=== PATIENT | female | born 1935 | race Two or more races ===

== ENCOUNTER 2018-11-19 09:45 | Outpatient (CLI) | payer MEDICARE, OTHER | END 2018-11-19 23:59 | disposition home health service (06) | LOC: WOU 09:45 | PROVIDERS: ATTEND Podiatrist Foot & Ankle Surgery | DX: S81.811A Laceration without foreign body, right lower leg, initial encounter (principal); W22.09XA Striking against other stationary object, initial encounter; Y93.89 Activity, other specified; R26.2 Difficulty in walking, not elsewhere classified; G90.09 Other idiopathic peripheral autonomic neuropathy; E66.9 Obesity, unspecified; Z68.39 Body mass index [BMI] 39.0-39.9, adult; I10 Essential (primary) hypertension | CPT/HCPCS: 11042; 11045 ==

== ENCOUNTER 2018-11-26 08:30 | Outpatient (CLI) | payer MEDICARE, OTHER | END 2018-11-26 23:59 | disposition home health service (06) | LOC: WOU 08:30 | PROVIDERS: ATTEND Podiatrist Foot & Ankle Surgery | DX: S81.811A Laceration without foreign body, right lower leg, initial encounter (principal); W22.09XA Striking against other stationary object, initial encounter; Y93.89 Activity, other specified; Y92.89 Other specified places as the place of occurrence of the external cause; Y99.8 Other external cause status; G90.09 Other idiopathic peripheral autonomic neuropathy; E66.01 Morbid (severe) obesity due to excess calories; Z68.39 Body mass index [BMI] 39.0-39.9, adult; R26.2 Difficulty in walking, not elsewhere classified; I10 Essential (primary) hypertension | CPT/HCPCS: 11042 ==

== ENCOUNTER 2018-12-03 08:30 | Outpatient (CLI) | payer MEDICARE, OTHER | END 2018-12-03 23:59 | disposition home health service (06) | LOC: WOU 08:30 | PROVIDERS: ATTEND Podiatrist Foot & Ankle Surgery | DX: S81.811A Laceration without foreign body, right lower leg, initial encounter (principal); W22.09XA Striking against other stationary object, initial encounter; Y93.89 Activity, other specified; Y92.89 Other specified places as the place of occurrence of the external cause; Y99.8 Other external cause status; L03.115 Cellulitis of right lower limb; G90.09 Other idiopathic peripheral autonomic neuropathy; E66.9 Obesity, unspecified; Z68.39 Body mass index [BMI] 39.0-39.9, adult; R26.2 Difficulty in walking, not elsewhere classified; I10 Essential (primary) hypertension | CPT/HCPCS: 11042; 11045 ==

== ENCOUNTER 2018-12-10 08:45 | Outpatient (CLI) | payer MEDICARE, OTHER | END 2018-12-10 23:59 | disposition home health service (06) | LOC: WOU 08:45 | PROVIDERS: ATTEND Podiatrist Foot & Ankle Surgery | DX: S81.811A Laceration without foreign body, right lower leg, initial encounter (principal); W22.09XA Striking against other stationary object, initial encounter; Y93.89 Activity, other specified; Y92.89 Other specified places as the place of occurrence of the external cause; R26.2 Difficulty in walking, not elsewhere classified; G90.09 Other idiopathic peripheral autonomic neuropathy; E66.9 Obesity, unspecified; Z68.39 Body mass index [BMI] 39.0-39.9, adult; I10 Essential (primary) hypertension | CPT/HCPCS: 11042 ==

== ENCOUNTER 2018-12-17 08:43 | Outpatient (CLI) | payer MEDICARE, OTHER | END 2018-12-17 23:59 | disposition home health service (06) | LOC: WOU 08:43 | PROVIDERS: ATTEND Podiatrist Foot & Ankle Surgery | DX: S81.811A Laceration without foreign body, right lower leg, initial encounter (principal); W22.09XA Striking against other stationary object, initial encounter; Y92.89 Other specified places as the place of occurrence of the external cause; M79.604 Pain in right leg; R26.2 Difficulty in walking, not elsewhere classified; E66.9 Obesity, unspecified; Z68.39 Body mass index [BMI] 39.0-39.9, adult; G90.09 Other idiopathic peripheral autonomic neuropathy; I10 Essential (primary) hypertension | CPT/HCPCS: 11042 ==

== ENCOUNTER 2018-12-24 14:00 | Outpatient (CLI) | payer MEDICARE, OTHER | END 2018-12-24 23:59 | disposition home health service (06) | LOC: WOU 14:00 | PROVIDERS: ATTEND Podiatrist Foot & Ankle Surgery | DX: S81.811D Laceration without foreign body, right lower leg, subsequent encounter (principal); W22.09XD Striking against other stationary object, subsequent encounter; L03.115 Cellulitis of right lower limb; R26.2 Difficulty in walking, not elsewhere classified; G90.09 Other idiopathic peripheral autonomic neuropathy; E66.9 Obesity, unspecified; Z68.39 Body mass index [BMI] 39.0-39.9, adult; I10 Essential (primary) hypertension | CPT/HCPCS: G0463 ==

== ENCOUNTER 2019-01-04 08:30 | Outpatient (CLI) | payer MEDICARE, OTHER | END 2019-01-04 23:59 | disposition home health service (06) | LOC: WOU 08:30 | PROVIDERS: ATTEND Podiatrist Foot & Ankle Surgery | DX: S81.811A Laceration without foreign body, right lower leg, initial encounter (principal); L03.115 Cellulitis of right lower limb; W22.8XXA Striking against or struck by other objects, initial encounter; V48.4XXA Person boarding or alighting a car injured in noncollision transport accident, initial encounter; G90.09 Other idiopathic peripheral autonomic neuropathy; I10 Essential (primary) hypertension; E66.9 Obesity, unspecified; Z68.39 Body mass index [BMI] 39.0-39.9, adult; Z71.3 Dietary counseling and surveillance | CPT/HCPCS: 11042 ==

== ENCOUNTER → 2019-01-08 | Outpatient (CLI) | payer MEDICARE, OTHER | END | disposition home health service (06) | LOC: WOU 08:35 | PROVIDERS: ATTEND Podiatrist Foot & Ankle Surgery | DX: I87.2 Venous insufficiency (chronic) (peripheral) (principal); L97.822 Non-pressure chronic ulcer of other part of left lower leg with fat layer exposed; R60.0 Localized edema; Z79.899 Other long term (current) drug therapy | CPT/HCPCS: 11042 ==

== ENCOUNTER 2019-01-15 09:22 | Outpatient (CLI) | payer MEDICARE, OTHER | END 2019-01-15 23:59 | disposition home health service (06) | LOC: WOU 09:22 | PROVIDERS: ATTEND Podiatrist Foot & Ankle Surgery | DX: I87.2 Venous insufficiency (chronic) (peripheral) (principal); L97.812 Non-pressure chronic ulcer of other part of right lower leg with fat layer exposed; L03.115 Cellulitis of right lower limb; R26.2 Difficulty in walking, not elsewhere classified; E66.9 Obesity, unspecified; Z68.39 Body mass index [BMI] 39.0-39.9, adult; I10 Essential (primary) hypertension; G90.09 Other idiopathic peripheral autonomic neuropathy; Z79.899 Other long term (current) drug therapy | CPT/HCPCS: 11042 ==

== ENCOUNTER 2019-01-22 08:45 | Outpatient (CLI) | payer MEDICARE, OTHER | END 2019-01-22 23:59 | disposition home health service (06) | LOC: WOU 08:45 | PROVIDERS: ATTEND Podiatrist Foot & Ankle Surgery | DX: I87.2 Venous insufficiency (chronic) (peripheral) (principal); L97.812 Non-pressure chronic ulcer of other part of right lower leg with fat layer exposed; G90.09 Other idiopathic peripheral autonomic neuropathy; R26.2 Difficulty in walking, not elsewhere classified; E66.9 Obesity, unspecified; Z68.39 Body mass index [BMI] 39.0-39.9, adult; I10 Essential (primary) hypertension; Z79.899 Other long term (current) drug therapy | CPT/HCPCS: 11042 ==

== ENCOUNTER 2019-01-30 14:00 | Outpatient (CLI) | payer MEDICARE, OTHER | END 2019-01-30 23:59 | disposition home health service (06) | LOC: WOU 14:00 | PROVIDERS: ATTEND Podiatrist Foot & Ankle Surgery | DX: I87.2 Venous insufficiency (chronic) (peripheral) (principal); L97.818 Non-pressure chronic ulcer of other part of right lower leg with other specified severity; S81.811S Laceration without foreign body, right lower leg, sequela; X58.XXXS Exposure to other specified factors, sequela; L03.119 Cellulitis of unspecified part of limb; R26.2 Difficulty in walking, not elsewhere classified; I10 Essential (primary) hypertension; G90.09 Other idiopathic peripheral autonomic neuropathy; E66.9 Obesity, unspecified; Z68.39 Body mass index [BMI] 39.0-39.9, adult | CPT/HCPCS: 17250 ==

== ENCOUNTER 2019-05-02 21:12 | Inpatient (IN) | payer MEDICARE, OTHER ==
[~2019-05-02] VITALS: Ht 157.5 cm; Wt 98.2 kg
--- NOTE | 2019-05-02 21:20 | NUR ---
PT [id number] FROM HOME C/O HEADACHE AND SOB. PER REPORT, AFIB EN ROUTE. PT STATES SHE DOESN'T FEEL GOOD AND HAS A FEVER OF 38.5 C AT HOME. PT AAOX4, PLACED ON 4 LITERS N/C SATTING 100%. PT PLACED ON CORRECTIVE AND MANUAL ARTS THERAPIST AND POX.
--- NOTE | 2019-05-02 21:25 | NUR ---
BLOOD DRAWN AND SENT TO LAB
[2019-05-02] MEDS ORDERED: IV NS 0.9% 1,000 ML BAG IV ONE (21:30)
[2019-05-02] MEDS ORDERED: ACETAMINOPHEN ES 500 MG TABLET PO ONE (21:30)
[2019-05-02] MEDS ORDERED: ACETAMINOPHEN ES 500 MG TABLET ONE (21:33)
[2019-05-02 21:38] LABS: BASOPHILS # (AUTO) 0.1 /CMM (0.0-0.2); BASOPHILS % (AUTO) 0.8 % (0.0-2.0); EOSINOPHILS % (AUTO) 0.6 % (0.0-6.0); HEMATOCRIT 38 % (33-45); LYMPHOCYTES % (AUTO) 12.2 % (20.0-44.0); MEAN CORPUSCULAR HGB CONC 32 g/dl (31.0-36.0); MEAN CORPUSCULAR VOLUME 89 fL (82-100); MONOCYTES # (AUTO) 1.9 /CMM (0.1-1.30); MONOCYTES % (AUTO) 11.6 % (2.0-12.0); NEUTROPHILS # (AUTO) 12.5 /CMM (1.8-8.9); NEUTROPHILS % (AUTO) 74.8 % (43.0-81.0); PLATELET COUNT (AUTO) 149 /CMM (150-450); RED BLOOD CELL COUNT(AUTO) 4.23 MIL/uL (4.0-5.2); WHITE BLOOD COUNT (AUTO) 16.7 K/uL (4.3-11.0)
--- NOTE | 2019-05-02 21:45 | NUR ---
XRAY AT BEDSIDE
--- NOTE | 2019-05-02 21:57 | NUR ---
CALLED [facility] PAGED TOÑITO GREEN
[2019-05-02 22:00] LABS: CALCIUM, SERUM 9.5 mg/dL (8.5-10.1); CARBON DIOXIDE 23 mmol/L (21-32); CHLORIDE 102 mmol/L (98-107); CREATININE 1.2 mg/dL (0.6-1.3); GLUCOSE 120 mg/dL (74-106); SODIUM SERUM 136 mmol/L (136-145); UREA NITROGEN, BLOOD 39 mg/dL (7-18)
[2019-05-02 22:10] LABS: ALANINE AMINOTRANSFERASE 26 U/L (12-78); ALBUMIN 2.8 g/dL (3.4-5.0); ALKALINE PHOSPHATASE 240 U/L (46-116); ASPARTATE AMINOTRANSFERASE 36 U/L (15-37); BILIRUBIN,DIRECT 0.5 mg/dL (0.0-0.2); BILIRUBIN,TOTAL 0.7 mg/dL (0.2-1.0); TOTAL PROTEIN, SERUM 6.2 g/dL (6.4-8.2)
[2019-05-02] MEDS ORDERED: AMIODARONE 150 MG/3 ML VIAL IV ONE ×4 (22:20→22:30)
[2019-05-02] MEDS ORDERED: ONDANSETRON HCL/PF 4 MG/2 ML VIAL IVP PRN (23:00)
[2019-05-02] MEDS ORDERED: ACETAMINOPHEN 650 MG/SUPP.RECT RC PRN (23:00)
--- NOTE | 2019-05-02 23:05 | NUR ---
RVP AND COVID SWAB SENT TO LAB
--- NOTE | 2019-05-02 23:17 | NUR ---
UNABLE TO GIVE URINE AT THIS MOMENT. AWARE
--- NOTE | 2019-05-02 23:25 | NUR ---
REPORT GIVEN TO BRADLEY CAPPS
[2019-05-02 23:35] VITALS: BP 111/58
--- NOTE | 2019-05-02 23:35 | NUR ---
83 Years old, female patent received from ER with the DX of Septic Shock. Patient able to ambulate with walker. A/O x4, denies any pain at this time. In no acute distress. Breathing even and unlabored. No SOB. A-fib on the monitor, rate 122. On Amnio Drips 1mg/Min, started in the ER. Will Confirm with MD. Body assessment done, patient denies for skin check. She said, "i dont have any skin issue". Safety maintained, bed at the lowest locked position. Safety instructions provided. Encouraged her to use call light for assistance. Call light within easy reach. On Droplet precautions, strictly observed. Will Continue to monitor as per plan of care.
--- NOTE | 2019-05-02 23:42 | NUR ---
PT TRANSFERRED TO 109 IN STABLE CONDITION
[2019-05-02] MEDS: CEFTRIAXONE 1 G in IV D5W 50 ML IV SCH (23:45)
[2019-05-03] MEDS ORDERED: CEFTRIAXONE 1 G VIAL ONE (00:05)
[2019-05-03] MEDS: IV NS 0.9% 1,000 ML IV SCH ×2 (00:06→11:55)
[2019-05-03] MEDS ORDERED: DEXTROSE 50%-WATER 50 ML DISP.SYRIN IV PRN (01:00)
[2019-05-03] MEDS ORDERED: MORPHINE SULFATE INJ 2 MG/ML DISP.SYRIN IM PRN (01:00)
--- NOTE | 2019-05-03 01:15 | NUR ---
Patient seen and examined Tip Caldwell. with new order. Noted. Patient in no acute distress. Will continue to monitor
[2019-05-03] MEDS ORDERED: AMIODARONE 900 MG in IV D5W 482 ML IV PRN (03:30)
[2019-05-03 04:00] VITALS: BP 117/56
--- NOTE | 2019-05-03 04:04 | NUR ---
Patient complain of left chest pain, radiating to left shoulder 10/23. Elevated the HOB, BP 112/74, HR 122, R 18, T98.7, O2 sat 98%. Further assess patient AB soft non- distended. With Bowel sounds present x4 quadrants. Patient guarding site. PRN morphine give as ordered, will continue to monitor closely. t
--- NOTE | 2019-05-03 04:32 | NUR ---
Patient continue to complain of left chest pain, She is saying that medication didnt work, Dim the light, encourage relaxation techniques, Alternative methods. Not effective. Patient continue to complain of pain. Called Dr. Paulette tavarez at this time with new order for STAT troponin and Nitroglycerine as ordered. Noted continue to monitor
--- NOTE | 2019-05-03 04:47 | NUR ---
Unable to scan nitro at this time, Given first dose of Nitro 0447, BP 107/79, HR 128 Pain did not subside, given second dose of Nitro 0452 BP 105/67, HR 126 Patient still complain of pain Third dose not given, patient denies and also BP was low 92/65. Will Continue to monitor Called Dr. Caldwell at this time. She said continue to wait for troponin results. Noted. Patient in no acute distress. Nurse at bed side. Patient started to calm down. verbalizing that her pain levels are going down. will continue to monitor.
[2019-05-03] MEDS ORDERED: NITROGLYCERIN 0.4 MG/TAB BOTTLE SL PRN (05:00)
[2019-05-03 05:18] LABS: BASOPHILS % (AUTO) 0.2 % (0.0-2.0); HEMATOCRIT 35 % (33-45); HEMOGLOBIN 11.3 g/dL (11.5-14.8); LYMPHOCYTES % (AUTO) 12.9 % (20.0-44.0); MEAN CORPUSCULAR HGB CONC 32 g/dl (31.0-36.0); MEAN CORPUSCULAR VOLUME 89 fL (82-100); MONOCYTES # (AUTO) 2.2 /CMM (0.1-1.30); MONOCYTES % (AUTO) 14.3 % (2.0-12.0); NEUTROPHILS # (AUTO) 11.1 /CMM (1.8-8.9); NEUTROPHILS % (AUTO) 71.6 % (43.0-81.0); PLATELET COUNT (AUTO) 124 /CMM (150-450); RED BLOOD CELL COUNT(AUTO) 3.94 MIL/uL (4.0-5.2); WHITE BLOOD COUNT (AUTO) 15.5 K/uL (4.3-11.0)
--- NOTE | 2019-05-03 05:30 | NUR ---
Troponin negative, relayed to Dr. Caldwell with no new order.
[2019-05-03 05:33] LABS: CALCIUM, SERUM 9.1 mg/dL (8.5-10.1); CARBON DIOXIDE 23 mmol/L (21-32); CHLORIDE 102 mmol/L (98-107); GLUCOSE 121 mg/dL (74-106); POTASSIUM 3.5 mmol/L (3.5-5.1); SODIUM SERUM 135 mmol/L (136-145); UREA NITROGEN, BLOOD 31 mg/dL (7-18)
[2019-05-03 05:38] LABS: ALANINE AMINOTRANSFERASE 15 U/L (12-78); ALBUMIN 2.4 g/dL (3.4-5.0); ALKALINE PHOSPHATASE 206 U/L (46-116); ASPARTATE AMINOTRANSFERASE 26 U/L (15-37); BILIRUBIN,TOTAL 0.7 mg/dL (0.2-1.0); MAGNESIUM 2.1 mg/dL (1.8-2.4); PHOSPHORUS 2.5 mg/dL (2.5-4.9); TOTAL PROTEIN, SERUM 5.7 g/dL (6.4-8.2)
[2019-05-03 06:09] LABS: CHOLESTEROL 87 mg/dL (<200); HDL CHOLESTEROL 37 mg/dL (40-60); LDL 29 mg/dL (0-99); TRIGLYCERIDES 63 mg/dL (30-150)
[2019-05-03 06:24] LABS: APPEARANCE,URINE CLEAR (CLEAR); BILIRUBIN,URINE NEGATIVE (NEGATIVE); BLOOD, URINE TRACE-INTA Ery/uL (NEGATIVE); COLOR,URINE YELLOW (YELLOW); KETONES,URINE NEGATIVE (NEGATIVE); LEUKOCYTE ESTERASE ,URINE NEGATIVE (NEGATIVE); NITRITE, URINE NEGATIVE (NEGATIVE); PH,URINE 5.5 (5.0-8.0); PROTEIN,URINE NEGATIVE (NEGATIVE); UGLUCOSE NEGATIVE (NEGATIVE); UROBILINOGEN,URINE 0.2 EU/dL (0.2)
[2019-05-03 06:48] LABS: BACTERIA,URINE None seen /HPF (None Seen); RBC,URINE 0-2 /HPF (0-2); SQUAMOUS EPITHELIAL CELL,UR Few /HPF (None Seen); WBC,URINE NONE SEEN /HPF (0-3)
[2019-05-03] MEDS ORDERED: METO25TA4 PO (07:21)
--- NOTE | 2019-05-03 07:21 | NUR ---
ICE CREAM FREEZER HELPER/MED RECON MED RECON UPDATED, INFO OBTAINED FROM PATIENT. PER PATIENT "I DON'T TAKE ANY MEDICATION, ONLY METOPROLOL". PRIMARY RN AWARE. DR. ALVAREZ MADE AWARE. NNO.
--- NOTE | 2019-05-03 07:29 | NUR ---
Patient resting comfortably at this time. In no acute distress. breathing even and unlabored. No SOB. Denies any pain. A/O to her base line. Kept clean and dry. Needs attendant. Seen and examined by Dr. Lima. Safety maintained. Endorse to AM shift nurse for ENRIQUETA.
[2019-05-03 08:00] VITALS: BP 134/74
[2019-05-03 08:11] LABS: THYROID STIMULATING HORMONE 3.616 uIU/mL (0.358-3.74)
[2019-05-03] MEDS: BLOOD SUGAR DIAGNOSTIC 1 EACH STRIP IN SCH ×4 (08:14→21:38)
[2019-05-03] MEDS ORDERED: PANTOPRAZOLE 40 MG VIAL IV SCH (09:00)
--- NOTE | 2019-05-03 09:14 | NUR ---
ROMA/RN NOTES RECEIVED VERBAL ORDERS FROM DR. RAY FOR NORCO AND MORPHINE ORDERS. ALL ORDERS NOTED AND CARRIED OUT. WILL CONTINUE TO MONITOR CLOSELY.
[2019-05-03] MEDS: DOXYCYCLINE 100 MG in IV D5W 100 ML IV SCH ×2 (09:21→20:24)
[2019-05-03] MEDS ORDERED: METOPROLOL SUCCINATE 25 MG TAB.SR.24H PO SCH (09:30)
[2019-05-03] MEDS: MORPHINE SULFATE INJ 2 MG/ML DISP.SYRIN IV PRN ×2 (09:32→16:15)
[2019-05-03 12:00] VITALS: BP_SYST 120; BP_SYST 138; BP_DIAS 68; BP_DIAS 82
[2019-05-03] MEDS: HYDROCODONE/APAP 5/325MG 1 EACH TABLET PO PRN ×2 (12:34→22:31)
--- NOTE | 2019-05-03 13:15 | NUR ---
RN NOTE RECEIVED CALL FROM DAUGHTER KOFI ABOUT THE PT'S CONDITION. SHE IS CONCERNED IF HER MOM HAS PNEUMONIA. EXPLAINED TO HER THE RESULTS OF THE RECENT CHEST XRAY. SHE ALSO WANTS TO KNOW IF HER MOM IS GOING TO BE DISCHARGED TO HOME IF THE COVID TEST IS POSITIVE. INF HER THAT IT DEPENDS IF PT'S HEART CONDITION IS STABILIZED. DAUGHTER UNDERSTOOD.
--- NOTE | 2019-05-03 14:45 | NUR ---
RN NOTE: Clarified with Dr. Lima regarding the Amiodarone drip. MD was updated about the current cardiac rhythm still uncontrolled A. fib with RVR still on Amiodarone 0.5mg/min as MD order. Dr. Lima gave new orders for Lopressor and Amiodarone PO. Order noted and carried out. Primary nurse Leobardo/BRADLEY Clemons made aware.
[2019-05-03] MEDS: METOPROLOL TARTRATE 50 MG TABLET PO SCH ×2 (15:52→20:28)
--- NOTE | 2019-05-03 15:54 | NUR ---
ROMA/RN NOTES RECEIVED ORDERS FROM DR. RAY TO ADD MOM AND COLACE ON HER MEDICATION LIST. ALL ORDERS NOTED AND CARRIED OUT. WILL CONTINUE TO MONITOR CLOSELY.
[2019-05-03 16:00] VITALS: BP 130/84
[2019-05-03] MEDS: RIVAROXABAN 10 MG TABLET PO SCH (16:26)
[2019-05-03] MEDS: MAGNESIUM HYDROXIDE 30 ML UDC PO PRN (16:27)
[2019-05-03] MEDS: DOCUSATE SODIUM 100 MG CAPSULE PO SCH (16:27)
--- NOTE | 2019-05-03 19:10 | NUR ---
ROMA/RN CLOSING NOTES PATIENT CONTINUES TO REMAIN IN STABLE CONDITION THROUGHOUT THE SHIFT. PROVIDED COMFORT AND SAFETY. PATIENT ABLE TO TOLERATE MEALS AND MEDS WELL. IV ACCESS INTACT AND PATENT. FLUSHING WELL. AMIO DRIP TO STOP @11PM TONIGHT AND TO CONTINUE WITH AMIO PO. PATIENT WAS ASSISTED TO THE BATHROOM NEEDED. ALL NEEDS ANTICIPATED. CALL LIGHT WITHIN REACHED. BED LOCKED AND IN LOWEST POSITION. SAFETY MAINTAINED. ENDORSED TO PM NURSE FOR ENRIQUETA.
[2019-05-03 20:00] VITALS: BP_SYST 130; BP_SYST 136; BP_DIAS 65; BP_DIAS 84
[2019-05-03] MEDS: INSULIN REGULAR, HUMAN 100 UNIT/ML 3 ML VIAL SQ PRN (21:39)
[2019-05-03] MEDS: CEFTRIAXONE 1 G in IV D5W 50 ML IV SCH (23:02)
[2019-05-04] VITALS (7 sets, daily range): BP systolic 108–156; BP diastolic 56–75
[2019-05-04] MEDS: IV NS 0.9% 1,000 ML IV SCH (03:14)
[2019-05-04] MEDS: METOPROLOL TARTRATE 50 MG TABLET PO SCH ×4 (04:49→22:03)
[2019-05-04 07:18] LABS: BASOPHILS % (AUTO) 0.4 % (0.0-2.0); EOSINOPHILS % (AUTO) 1.1 % (0.0-6.0); HEMATOCRIT 34 % (33-45); HEMOGLOBIN 11.2 g/dL (11.5-14.8); LYMPHOCYTES # (AUTO) 1.9 /CMM (0.8-4.8); LYMPHOCYTES % (AUTO) 17.8 % (20.0-44.0); MEAN CORPUSCULAR HGB CONC 33 g/dl (31.0-36.0); MEAN CORPUSCULAR VOLUME 89 fL (82-100); MONOCYTES # (AUTO) 1.4 /CMM (0.1-1.30); MONOCYTES % (AUTO) 13.5 % (2.0-12.0); NEUTROPHILS # (AUTO) 7.2 /CMM (1.8-8.9); NEUTROPHILS % (AUTO) 67.2 % (43.0-81.0); PLATELET COUNT (AUTO) 130 /CMM (150-450); WHITE BLOOD COUNT (AUTO) 10.7 K/uL (4.3-11.0)
[2019-05-04 07:36] LABS: ALANINE AMINOTRANSFERASE 13 U/L (12-78); ALBUMIN 2.3 g/dL (3.4-5.0); ALKALINE PHOSPHATASE 179 U/L (46-116); ASPARTATE AMINOTRANSFERASE 16 U/L (15-37); BILIRUBIN,TOTAL 0.4 mg/dL (0.2-1.0); CALCIUM, SERUM 9.7 mg/dL (8.5-10.1); CARBON DIOXIDE 24 mmol/L (21-32); CHLORIDE 101 mmol/L (98-107); CREATININE 0.8 mg/dL (0.6-1.3); GLUCOSE 112 mg/dL (74-106); MAGNESIUM 2.1 mg/dL (1.8-2.4); POTASSIUM 3.4 mmol/L (3.5-5.1); SODIUM SERUM 134 mmol/L (136-145); TOTAL PROTEIN, SERUM 5.8 g/dL (6.4-8.2); UREA NITROGEN, BLOOD 19 mg/dL (7-18)
[2019-05-04] MEDS: BLOOD SUGAR DIAGNOSTIC 1 EACH STRIP IN SCH ×4 (07:51→22:04)
[2019-05-04] MEDS: DOCUSATE SODIUM 100 MG CAPSULE PO SCH ×2 (09:07→16:40)
[2019-05-04] MEDS: AMIODARONE HCL 200 MG TABLET PO SCH ×3 (09:07→16:39)
[2019-05-04] MEDS: DOXYCYCLINE 100 MG in IV D5W 100 ML IV SCH (09:08)
[2019-05-04] MEDS: MORPHINE SULFATE INJ 2 MG/ML DISP.SYRIN IV PRN (09:49)
[2019-05-04] MEDS ORDERED: IV NS 0.9% 1,000 ML IV PRN (10:00)
[2019-05-04] MEDS ORDERED: DILTIAZEM HCL CD 240 MG PO SCH (10:00)
[2019-05-04] MEDS ORDERED: POTASSIUM CHLORIDE 20 MEQ TAB.PRT.SR PO SCH (10:00)
[2019-05-04] MEDS: NEUTRA PHOS 1 POWD.PACKET PO SCH ×2 (10:29→16:49)
--- NOTE | 2019-05-04 12:11 | NUR ---
TELE/RN NOTES ICU NURSE TRIED TO INSERT IV TO THE PATIENT, UNSUCCESSFUL. INFORMED DR. RAY TO IF WE COULD PUT A MIDLINE ON THE PATIENT. AWAITING FOR RESPONSE.
--- NOTE | 2019-05-04 12:15 | NUR ---
PATIENT IV ACCIDENTALLY PULLED OUT TWICE,PATIENT HARD STICK ICU NURSE FREDERICK TRIED 3X UNSUCCESSFUL,PER NURSING SUP MIDLINE NURSE COMING AROUND 11PM.REVIEWED MEDS V/S AND LABS WITH DR. RAY WITH NEW ORDERS FOR PO ANTIBIOTICS.WILL CONTINUE TO FOLLOW UP.
--- NOTE | 2019-05-04 12:17 | NUR ---
TELE/RN NOTES RECEIVED ORDER FROM DR. RAY TO TO CHANGE ROCEPHINE AND DOXYCYCLINE TO AUGMENTIN PO. ALL ORDERS NOTED AND CARRIED OUT. WILL CONTINUE TO MONITOR CLOSELY.
[2019-05-04] MEDS: MAGNESIUM HYDROXIDE 30 ML UDC PO PRN (14:09)
[2019-05-04] MEDS ORDERED: NA PHOS,M-B/NA PHOS,DI-BA 1 EA ENEMA RC PRN (15:00)
[2019-05-04] MEDS: RIVAROXABAN 10 MG TABLET PO SCH (16:40)
[2019-05-04] MEDS: AMOX/CLAVULANATE 875 MG TABLET PO SCH (16:40)
--- NOTE | 2019-05-04 18:45 | NUR ---
TELE/RN CLOSING NOTES PATIENT CONTINUES TO REMAIN IN STABLE CONDITION THROUGHOUT THE SHIFT. PROVIDED COMFORT AND SAFETY. PATIENT ABLE TO TOLERATE MEALS AND MEDS WELL. ALL NEEDS ANTICIPATED. CALL LIGHT WITHIN REACHED. BED LOCKED AND IN LOWEST POSITION. SAFETY MAINTAINED. WILL CONTINUE TO MONITOR CLOSELY. ENDORSED TO PM NURSE REGARDING THE CARDIOVERSION TOMORROW. PHYLLIS LANDA, NURSING SUP, AND DR. [place] WAS AWARE. MIDLINE NURSE WILL BE COMING WELL TO PLACE A MIDLINE AROUND 11PM.
--- NOTE | 2019-05-04 19:16 | NUR ---
NEUROUROLOGIST NOTES PATIENT SITTING IN CHAIR. ALERT AND ORIENTED X 4. BREATHING EVEN AND UNLABORED ON 4L NC. SHOWS NO SIGNS OF ACUTE RESPIRATORY DISTRESS, NO ACUTE PAIN. NO IV, MIDLINE NURSE WILL BE DOING AN INSERTION AT 2300. ON TELE WITH 87HR OF A-FLUTTER. SAFETY PRECAUTIONS IN PLACE. BED IN LOWEST POSITION, LOCKED, AND CALL LIGHT KEPT WITHIN REACH. WILL CONTINUE TO MONITOR.
[2019-05-04] MEDS: INSULIN REGULAR, HUMAN 100 UNIT/ML 3 ML VIAL SQ PRN (22:21)
--- NOTE | 2019-05-04 23:55 | NUR ---
PRINCIPAL PLANNER NOTES PATIENT STATE SHE WAS IN A LOT OF PAIN 08/22. SHE ASKED FOR PAIN MEDICATION. TOOK NORCO PRN IN THE OMNICELL FOR THE PATIENT. OPENED NORCO MEDICATION AND PT REFUSED AND INSTEAD ASKED FOR TYLENOL. MEDICATION WAS DISPOSED AND WASTED WITH NURSE.
[2019-05-04] MEDS: ACETAMINOPHEN 325 MG TABLET PO PRN (23:59)
[2019-05-05] VITALS: BP 136/65
[2019-05-05 04:00] VITALS: BP_SYST 110; BP_SYST 114; BP_DIAS 70; BP_DIAS 75
[2019-05-05] MEDS: METOPROLOL TARTRATE 50 MG TABLET PO SCH ×2 (04:42→17:00)
[2019-05-05 06:36] LABS: BASOPHILS % (AUTO) 0.5 % (0.0-2.0); EOSINOPHILS % (AUTO) 0.7 % (0.0-6.0); HEMATOCRIT 34 % (33-45); LYMPHOCYTES # (AUTO) 2.1 /CMM (0.8-4.8); LYMPHOCYTES % (AUTO) 20.3 % (20.0-44.0); MEAN CORPUSCULAR HGB CONC 33 g/dl (31.0-36.0); MEAN CORPUSCULAR VOLUME 89 fL (82-100); MONOCYTES # (AUTO) 1.2 /CMM (0.1-1.30); MONOCYTES % (AUTO) 11.4 % (2.0-12.0); NEUTROPHILS # (AUTO) 6.9 /CMM (1.8-8.9); NEUTROPHILS % (AUTO) 67.1 % (43.0-81.0); PLATELET COUNT (AUTO) 170 /CMM (150-450); RED BLOOD CELL COUNT(AUTO) 3.78 MIL/uL (4.0-5.2); WHITE BLOOD COUNT (AUTO) 10.2 K/uL (4.3-11.0)
--- NOTE | 2019-05-05 06:54 | NUR ---
INDUSTRY ANALYST NOTES PATIENT IN BED, WITH INTERMITTENT SLEEP, ALERT AND ORIENTED X 4. BREATHING EVEN AND UNLABORED ON 4L NC. SHOWS NO SIGNS OF ACUTE RESPIRATORY DISTRESS, NO ACUTE PAIN. IV ON JANINE MIDLINE, CLEAN DRY AND INTACT. SHOWS NO SIGNS OF INFILTRATION NO REDNESS. ON TELE WITH 90HR OF A-FIB. ALL DUE MEDICATIONS GIVEN. SAFETY PRECAUTIONS IN PLACE. BED IN LOWEST POSITION, LOCKED, AND CALL LIGHT KEPT WITHIN REACH. WILL ENDORSE TO ONCOMING NURSE.
[2019-05-05 07:16] LABS: ALANINE AMINOTRANSFERASE 14 U/L (12-78); ALBUMIN 2.3 g/dL (3.4-5.0); ALKALINE PHOSPHATASE 198 U/L (46-116); ASPARTATE AMINOTRANSFERASE 11 U/L (15-37); BILIRUBIN,TOTAL 0.4 mg/dL (0.2-1.0); CALCIUM, SERUM 9.7 mg/dL (8.5-10.1); CARBON DIOXIDE 23 mmol/L (21-32); CHLORIDE 103 mmol/L (98-107); GLUCOSE 101 mg/dL (74-106); MAGNESIUM 2.1 mg/dL (1.8-2.4); PHOSPHORUS 2.7 mg/dL (2.5-4.9); POTASSIUM 3.5 mmol/L (3.5-5.1); SODIUM SERUM 138 mmol/L (136-145); TOTAL PROTEIN, SERUM 5.9 g/dL (6.4-8.2); UREA NITROGEN, BLOOD 20 mg/dL (7-18)
[2019-05-05 08:00] VITALS: BP 112/65
--- NOTE | 2019-05-05 08:00 | NUR ---
RN NOTES RECEIVED PATIENT IN THE BED, NPO, STABLE, V/S STABLE, PATIENT SCHEDULED CARDIOVERSION TODAY. NO ACUTE RESPIRATORY DISTRESS, CALL LIGHT WITHIN TO REACH. PATIENT USING WALKER.
[2019-05-05] MEDS: AMIODARONE HCL 200 MG TABLET PO SCH ×3 (09:00→16:34)
--- NOTE | 2019-05-05 09:13 | NUR ---
rn notes Patient in the cardioversion procedure at this time in the bedside. SR-100 to 105. patient a/o x3, v/s stable.MD, RT and ICU nurse present during procedure.
--- NOTE | 2019-05-05 09:50 | NUR ---
RN NOTE (Cardioversion) 0915: Prepped patient fro procedure, patient aware for the procedure and agreed. Dr. Lyn (Anest) at bedside. Connected to Defib with reading Afib 90-120's. Placed on simple mask at 6LPM per anest. VS: 116/67, 106, 95% 0920: Patient asleep, Dr. Lima rendered shock on defib, now reading SB 58. 120/71 0925: EKG done, SB 50's. 87/54, 96% 0930: 86/48, 54, 96% 0935: Patient awake, Stable VSS. 2LPM O2 via NC. No pain. Back to baseline. 98/59, 60, 96%. 0937: 103/60, 60, 95%.
--- NOTE | 2019-05-05 09:55 | NUR ---
rn notes patient in the bed resting, finished procedure at this time. patient refused pain v/s taken bp-113/64, p-61, continued monitoring.
[2019-05-05] MEDS: BLOOD SUGAR DIAGNOSTIC 1 EACH STRIP IN SCH ×4 (09:57→22:13)
[2019-05-05] MEDS: DOCUSATE SODIUM 100 MG CAPSULE PO SCH ×2 (10:35→16:31)
[2019-05-05] MEDS: AMOX/CLAVULANATE 875 MG TABLET PO SCH ×2 (10:35→16:31)
[2019-05-05 12:00] VITALS: BP 147/64
[2019-05-05] MEDS: ACETAMINOPHEN 325 MG TABLET PO PRN (13:52)
--- NOTE | 2019-05-05 13:52 | NUR ---
rn notes administered Tylenol 650 mg po prn for left upper chest pain 5/10 per patient request.
[2019-05-05 16:00] VITALS: BP_SYST 118; BP_SYST 125; BP_DIAS 61; BP_DIAS 62
[2019-05-05] MEDS: RIVAROXABAN 10 MG TABLET PO SCH (16:30)
[2019-05-05] MEDS: HYDROCODONE/APAP 5/325MG 1 EACH TABLET PO PRN (16:35)
--- NOTE | 2019-05-05 16:35 | NUR ---
RN NOTES ADMINISTERED NARCO 5/325 MG PO PRN FOR HEADACHE 07/23, ALSO ADMINISTERED SCHEDULED MEDICATION, BS-90 MG/DL. CALL LIGHT WITHIN TO REACH, CONTINUED MONITORING.
--- NOTE | 2019-05-05 18:00 | NUR ---
RN NOTES BS-90 MG/DL NO COVERAGE GIVEN, MEDICATION WERE ADMINISTERED FOR HEADACHE EFFECTIVE, ALSO ADMINISTERED SCHEDULED MEDICATION, HELD BP MEDICATION BECAUSE OF LOW BP 106/47, P061, PATIENT SITTING IN THE CHAIR WATCHING TV, TOLERATED DINNER WELL, CALL LIGHT WITHIN TO REACH, SAFETY PRECAUTION MAINTAINED ALL THE TIME. ENDORSED ONCOMING NURSE FOLLOW PLAN OF CARE.
[2019-05-05 20:00] VITALS: BP_SYST 107; BP_DIAS 62; BP_DIAS 67
--- NOTE | 2019-05-05 20:15 | NUR ---
RF MICROWAVE ENGINEER NOTES PATIENT AWAKE IN BED. A/OX4. ON ROOM AIR. TELE MONITOR READING SINUS RHYTHM, HEART RATE 66. PATIENT DENIES AND SOB OR PAIN AT THIS TIME. MIDLINE PRESENT ON RIGHT UPPER ARM, INTACT & PATENT, HEP LOCKED. SAFETY MEASURES IN PLACE. BED LOCKED, ALARM ON, SIDE RAILS X2, CALL LIGHT WITHIN REACH. WILL CONTINUE TO MONITOR.
[2019-05-06 00:07] VITALS: BP 102/61
[2019-05-06 04:00] VITALS: BP 117/52
[2019-05-06] MEDS: MORPHINE SULFATE INJ 2 MG/ML DISP.SYRIN IV PRN (06:12)
--- NOTE | 2019-05-06 06:13 | NUR ---
WARDROBE COORDINATOR NOTES PATIENT C/O GENERALIZED PAIN RATED 9/10. PER REQUEST, ADMINISTERED PRN 2MG MORPHINE IV PUSH. VITAL SIGNS - BP: 117/52 HR: 74 RR: 18 SPO2: 94 ON ROOM AIR. CALL LIGHT WITHIN REACH. WILL CONTINUE TO MONITOR.
[2019-05-06] MEDS: BLOOD SUGAR DIAGNOSTIC 1 EACH STRIP IN SCH ×2 (06:44→11:14)
--- NOTE | 2019-05-06 06:59 | NUR ---
REWRITE EDITOR CLOSING NOTES PATIENT AWAKE IN BED. REMAINED STABLE DURING SHIFT. NO S/S OF ACUTE RESPIRATORY DISTRESS. TELE MONITOR READING SINUS RHYTHM, HEART RATE 68. SAFETY MEASURES IN PLACE. PATIENT CURRENTLY C/O RIGHT EYE DISCOMFORT; SLIGHT REDNESS PRESENT. WILL ENDORSE TO DAY SHIFT NURSE TO FOLLOW UP WITH HOSPITALIST ABOUT RIGHT EYE AND PLAN OF CARE.
--- NOTE | 2019-05-06 07:31 | NUR ---
rn opening notes Patient received on room air, no sob noted, patient denies pain at this time. A/O x4 and is SR in the 60's range. JANINE midline for HL present at this time. Bed at the lowest setting, call light within reach, side rails up x2.
[2019-05-06 08:00] VITALS: BP 135/68
[2019-05-06] MEDS: AMIODARONE HCL 200 MG TABLET PO SCH ×2 (08:17→12:38)
[2019-05-06] MEDS: AMOX/CLAVULANATE 875 MG TABLET PO SCH (08:17)
[2019-05-06] MEDS: DOCUSATE SODIUM 100 MG CAPSULE PO SCH (08:17)
[2019-05-06] MEDS: METOPROLOL TARTRATE 50 MG TABLET PO SCH (08:18)
--- NOTE | 2019-05-06 11:15 | NUR ---
rn notes Patient's blood glucose at 114 at this time. No coverage needed
[2019-05-06] MEDS ORDERED: CARBOXYMETHYLCELLULOSE SODIUM 0.4 ML DROPERETTE EACHEYE PRN (11:30)
[2019-05-06] MEDS ORDERED: RIVA10TA PO (11:45)
[2019-05-06] MEDS ORDERED: METO50TA16 PO (11:45)
[2019-05-06] MEDS ORDERED: NITR0.4T48 SL (11:45)
[2019-05-06] MEDS ORDERED: AMOX-430 PO (11:45)
[2019-05-06] MEDS ORDERED: POLY30DR EACHEYE (11:47)
[2019-05-06 12:00] VITALS: BP_SYST 122; BP_SYST 135; BP_DIAS 57; BP_DIAS 68
[2019-05-06 12:38] VITALS: BP 122/57
--- NOTE | 2019-05-06 14:19 | NUR ---
rn notes Patient discharged at this time. No sob noted, Midline removed and no other lines are present. Belongings with patient and nothing is missing, stated by her as well. Cell phone in her possession. DC paper signed and has no further questions at this time.
[2019-05-09] MEDS ORDERED: AMIO200T4 PO (09:36)
== END 2019-05-06 14:30 | disposition home or self-care (01) | DRG 871 ==
LOC: ER 21:12 → TELE-TD 22:59 → TELE1 05-04 11:39
PROVIDERS: ADMIT Registered Nurse; ATTEND Student in an Organized Health Care Education/Training Program
PROC: 05H933Z Insertion of Infusion Device into Right Brachial Vein, Percutaneous Approach (ICD-10-PCS; principal; 2019-05-04)
DX: A41.9 Sepsis, unspecified organism (principal); J18.9 Pneumonia, unspecified organism; R65.21 Severe sepsis with septic shock; E44.1 Mild protein-calorie malnutrition; N17.9 Acute kidney failure, unspecified; E66.01 Morbid (severe) obesity due to excess calories; E86.0 Dehydration; I10 Essential (primary) hypertension; I48.91 Unspecified atrial fibrillation; Z88.6 Allergy status to analgesic agent; D64.9 Anemia, unspecified; R73.9 Hyperglycemia, unspecified
CPT/HCPCS: 36415; 71045-TC; 80048-TC; 80053-TC; 80061-TC; 80076-TC; 81000-TC; 82728-TC; 82962-TC; 83540-TC; 83605-TC; 83735-TC; 84100-TC; 84439-TC; 84443-TC; 84484-TC; 85025-TC; 85730-TC; 87040-TC; 87081-TC; 87086-TC; 92611-TC; 93307-TC; G0378; J0282; J0696; J1815; J2270; J3490; J7030; J7060; U0001

== ENCOUNTER 2019-05-07 14:35 | Outpatient (CLI) | payer MEDICARE, OTHER ==
[~2019-05-07 14:35] MED LIST: AMOX-430 PO; METO25TA4 PO; METO50TA16 PO; NITR0.4T48 SL; POLY30DR EACHEYE; RIVA10TA PO
[2019-05-09] MEDS ORDERED: AMIO200T4 PO (09:36)
== END 2019-05-07 23:59 | disposition home or self-care (01) ==
LOC: MSC 14:35
PROVIDERS: ATTEND Internal Medicine
DX: I48.91 Unspecified atrial fibrillation (principal); Z79.01 Long term (current) use of anticoagulants; I10 Essential (primary) hypertension; E88.09 Other disorders of plasma-protein metabolism, not elsewhere classified; E44.1 Mild protein-calorie malnutrition; E66.01 Morbid (severe) obesity due to excess calories; Z79.899 Other long term (current) drug therapy

== ENCOUNTER 2019-05-20 18:12 | Inpatient (IN) | payer MEDICARE, OTHER ==
[~2019-05-20] VITALS: Ht 152.4 cm; Wt 101.6 kg
[~2019-05-20 18:12] MED LIST changes: +AMIO200T4 PO
[2019-05-20] MEDS ORDERED: Calcium Gluconate 0.465 MEQ/ML VIAL IV ONE ×3 (18:15→19:06)
--- NOTE | 2019-05-20 18:15 | NUR ---
ELISSA RA 102 From Home "Family states complaining of dizziness today HR 29 had recent increase of metoprolol to 50mg. BS-117" Patient a/ox3, spo2 on 70s on room air, oxygen applied patient put on 10lpm via mask. Patient changed intog own, attached to the skid man, iv line established.
--- NOTE | 2019-05-20 18:15 | NUR ---
2amps of calcium gluconate pulled-- to be given once iv started
--- NOTE | 2019-05-20 18:20 | NUR ---
Started giving Atropine IV as patient's HR is 35-40s at this time. Patient attached to cardiac pacer.
[2019-05-20] MEDS ORDERED: ONDANSETRON HCL/PF 4 MG/2 ML VIAL ONE (18:25)
[2019-05-20] MEDS ORDERED: ATROPINE SULFATE 1 MG/10 ML DISP.SYRIN ONE (18:46)
[2019-05-20] MEDS ORDERED: ONDANSETRON HCL/PF - ER 4 MG/2 ML VIAL IV ONE (19:00)
[2019-05-20] MEDS ORDERED: IV NS 0.9% 1,000 ML BAG IV ONE (19:00)
[2019-05-20] MEDS ORDERED: GLUCAGON,HUMAN RECOMBINANT 1 MG/VIAL VIAL IV ONE (19:00)
[2019-05-20] MEDS ORDERED: ATROPINE SULFATE INJ 1 MG/ML VIAL IV ONE (19:00)
[2019-05-20] MEDS ORDERED: DOPamine 400 MG/D5W 250 ML RTU PIGGYBACK IV ONE (19:00)
[2019-05-20] MEDS ORDERED: Calcium Gluconate 1GM/10ML 4.65 MEQ in IV NS 0.9% 100 ML IV ONE ×6 (19:00)
[2019-05-20] MEDS ORDERED: GLUCAGON,HUMAN RECOMBINANT 1 MG/VIAL VIAL ONE (19:08)
--- NOTE | 2019-05-20 19:22 | NUR ---
REPORT RECEIVED FROM NICK HUERTA
--- NOTE | 2019-05-20 19:34 | NUR ---
TECH AT BEDSIDE FOR EKG
--- NOTE | 2019-05-20 19:34 | NUR ---
Alicia gomes in [facility] - 05/20/19 at 1941 by FANY TECH AT BEDSIDE FOR BEDSIDE
[2019-05-20 20:45] LABS: CALCIUM, SERUM 10.8 mg/dL (8.5-10.1); CREATININE 1.3 mg/dL (0.6-1.3)
[2019-05-20] MEDS ORDERED: VANCOMYCIN 1 GM VIAL ONE (20:50)
[2019-05-20] MEDS ORDERED: CEFEPIME 1 GM VIAL ONE (20:50)
[2019-05-20 20:53] LABS: ALBUMIN 3.3 g/dL (3.4-5.0); BILIRUBIN,DIRECT 0.5 mg/dL (0.0-0.2); TOTAL PROTEIN, SERUM 7.6 g/dL (6.4-8.2)
[2019-05-20 20:56] LABS: BASOPHILS # (AUTO) 0.1 /CMM (0.0-0.2); BASOPHILS % (AUTO) 0.8 % (0.0-2.0); EOSINOPHILS % (AUTO) 0.3 % (0.0-6.0); HEMATOCRIT 42 % (33-45); HEMOGLOBIN 13.4 g/dL (11.5-14.8); LYMPHOCYTES # (AUTO) 2.2 /CMM (0.8-4.8); LYMPHOCYTES % (AUTO) 14.6 % (20.0-44.0); MEAN CORPUSCULAR HGB CONC 32 g/dl (31.0-36.0); MEAN CORPUSCULAR VOLUME 91 fL (82-100); MONOCYTES # (AUTO) 0.7 /CMM (0.1-1.30); NEUTROPHILS # (AUTO) 11.8 /CMM (1.8-8.9); NEUTROPHILS % (AUTO) 79.3 % (43.0-81.0); PLATELET COUNT (AUTO) 323 /CMM (150-450); RED BLOOD CELL COUNT(AUTO) 4.63 MIL/uL (4.0-5.2)
[2019-05-20 20:58] LABS: WHITE BLOOD COUNT (AUTO) 14.8 K/uL (4.3-11.0)
[2019-05-20] MEDS ORDERED: VANCOMYCIN 1 GM in IV D5W 250 ML IV ONE (21:00)
[2019-05-20] MEDS ORDERED: CEFEPIME 1 GM in IV D5W 50 ML IV ONE (21:00)
--- NOTE | 2019-05-20 21:07 | NUR ---
INFORMED DR. LAWS DOPAMINE DRIP TITRATE DOWN TO 5MCG/MIN. PT REMAINS TACHYCARDIC 130'S, PER VERBAL MD ORDER, WILL D/C DOPAMINE
--- NOTE | 2019-05-20 21:12 | NUR ---
DC'ED DOPAMINE PER MD ORDER
--- NOTE | 2019-05-20 21:22 | NUR ---
PALCED PT ON 4 L O2 N/C SATTING AT 94%
[2019-05-20 21:24] LABS: APPEARANCE,URINE Clear (CLEAR); BILIRUBIN,URINE Negative (NEGATIVE); BLOOD, URINE Trace-intact Ery/uL (NEGATIVE); COLOR,URINE Yellow (YELLOW); KETONES,URINE Negative (NEGATIVE); LEUKOCYTE ESTERASE ,URINE Negative (NEGATIVE); NITRITE, URINE Negative (NEGATIVE); PROTEIN,URINE Negative (NEGATIVE); UGLUCOSE Negative (NEGATIVE); UROBILINOGEN,URINE 0.2 EU/dL (0.2)
[2019-05-20] MEDS ORDERED: MAGNESIUM HYDROXIDE 30 ML UDC PO PRN (21:30)
[2019-05-20] MEDS ORDERED: ONDANSETRON HCL/PF 4 MG/2 ML VIAL IVP PRN (21:30)
[2019-05-20] MEDS ORDERED: ZOLPIDEM TARTRATE 5 MG TABLET PO PRN (21:30)
[2019-05-20] MEDS ORDERED: Z GUARD REMEDY 2 OZ OINT TP PRN (21:30)
[2019-05-20] MEDS ORDERED: MAG HYDROX/AL HYDROX/SIMETH 30 ML UDC PO PRN (21:30)
--- NOTE | 2019-05-20 21:34 | NUR ---
MANAGER PROCESS AT BEDSIDE
[2019-05-20 21:38] LABS: BACTERIA,URINE Few /HPF (None Seen); SQUAMOUS EPITHELIAL CELL,UR Moderate /HPF (None Seen)
--- NOTE | 2019-05-20 21:42 | NUR ---
REPORT GIVEN TO JAMEL HUERTA
--- NOTE | 2019-05-20 22:33 | NUR ---
PT TRANSFERRED TO ROOM 327-2 IN STABLE CONDITION
--- NOTE | 2019-05-20 22:35 | NUR ---
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 ABLE TO GIVE INFORMATION IN NEPALESE, A/OX3, SOB ON MINIMAL EXERTION. 02 4 L VIA NC.SATURATING 96 TO 98%. JUSTUS LUNG VILLAFANA DIMINISHED, OCC NON PRODUCTIVE COUGH NO PHLEGM. INCONTINENT, LARGE URINE OUTPUT, KEPT DRY AND COMFORTABLE. REPOSITIONED PER PATIENTS COMFORT, V/S MONITORED. REFUSED TO HAVE TELEMONITOR, EXPLAINED IMPORTANCE STATED NOT FOR NOW THAT SHE HAS A REASON. STATES UNABLE TO BREATH WITH MONITOR ON. INFORMED CN, SPOKE TO PATIENT STILL REFUSED. ICE CHIPS REQUESTED CLAIMS DRY MOUTH. STARTED ON NS AT 75CC/HR, VIA RIGHT HAND 20 GAUGE. HAS BRUISE ON RIGHT SHOULD, RIGHT FOREARM, LEFT KNEE, STATED FELL YESTERDAY. LEFT HAND BRUISED FORM LAB DRAW. PATIENT ON XARELTO. ALL NEEDS ATTENDED, CLOSELY WATCHED. BED ALARM ON.
[2019-05-20] MEDS ORDERED: PIPERACILLIN /TAZOBACTAM 3.375 G VIAL IV ONE (22:55)
[2019-05-20 23:00] VITALS: BP 107/68
[2019-05-20] MEDS ORDERED: PIPERACILLIN /TAZOBACTAM 3.375 G in IV D5W 50 ML IV SCH (23:00)
[2019-05-20] MEDS: IV NS 0.9% 1,000 ML IV PRN (23:44)
[2019-05-20] MEDS: ZOSYN IVPB 3.375 G in IV D5W 50ml IV SCH (23:46)
--- NOTE | 2019-05-21 | NUR ---
TELERN STARTED ON ZOSYN, INFUSING WELL.
[2019-05-21 00:01] VITALS: BP 107/68
--- NOTE | 2019-05-21 02:20 | NUR ---
TELERN CALLED FOR DIAPER CHANGE, EARLY AM CARE DONE. REFUSED STILL HEART MONITOR. REPOSITIONED FOR COMFORT. 02 MAINTAINED. CLOSELY WATCHED.
--- NOTE | 2019-05-21 03:20 | NUR ---
TELERN HAVE CN SPEAK TO PATIENT AGAIN REGARDING TELE MONITORING, STILL REFUSED.
[2019-05-21 04:30] VITALS: BP 131/69
[2019-05-21] MEDS ORDERED: PIPERACILLIN /TAZOBACTAM 3.375 G VIAL IV ONE (05:48)
[2019-05-21] MEDS: ZOSYN IVPB 3.375 G in IV D5W 50ml IV SCH (06:08)
--- NOTE | 2019-05-21 06:10 | NUR ---
TELERN AM CARE DONE, AGREED BLOOD DRAW THIS TIME, STILL NO TO TELEBOX. PRESENT IVF INFUSING WELL
[2019-05-21 06:55] LABS: BASOPHILS # (AUTO) 0.1 /CMM (0.0-0.2); EOSINOPHILS % (AUTO) 1.2 % (0.0-6.0); HEMATOCRIT 34 % (33-45); LYMPHOCYTES # (AUTO) 2.1 /CMM (0.8-4.8); LYMPHOCYTES % (AUTO) 26.3 % (20.0-44.0); MEAN CORPUSCULAR HGB CONC 32 g/dl (31.0-36.0); MEAN CORPUSCULAR VOLUME 90 fL (82-100); MONOCYTES # (AUTO) 0.8 /CMM (0.1-1.30); MONOCYTES % (AUTO) 10.1 % (2.0-12.0); NEUTROPHILS # (AUTO) 4.8 /CMM (1.8-8.9); NEUTROPHILS % (AUTO) 61.4 % (43.0-81.0); PLATELET COUNT (AUTO) 244 /CMM (150-450); RED BLOOD CELL COUNT(AUTO) 3.79 MIL/uL (4.0-5.2); WHITE BLOOD COUNT (AUTO) 7.8 K/uL (4.3-11.0)
[2019-05-21 07:14] LABS: ALBUMIN 2.7 g/dL (3.4-5.0); BILIRUBIN,DIRECT 0.3 mg/dL (0.0-0.2); BILIRUBIN,TOTAL 0.6 mg/dL (0.2-1.0); CALCIUM, SERUM 9.6 mg/dL (8.5-10.1); CREATININE 1.3 mg/dL (0.6-1.3); MAGNESIUM 2.2 mg/dL (1.8-2.4); PHOSPHORUS 3.5 mg/dL (2.5-4.9); POTASSIUM 4.1 mmol/L (3.5-5.1)
--- NOTE | 2019-05-21 07:31 | NUR ---
TELE/RN NOTES RELIEVED PATIENT LYING ON BED. PATIENT IS ALERT AND ORIENTED X3. NO APPARENT RESPIRATORY DISTRESS NOTED. TELE MONITOR IN PLACE SINUS RHYTHM 61. IV LINE ON RIGHT HAND #20; RIGHT AC #18 INTACT AND PATENT. BED IN LOWEST POSITION, SIDE RAILS IP X2. WILL CONTINUE TO MONITOR.
[2019-05-21 08:00] VITALS: BP 143/74
[2019-05-21] MEDS: PANTOPRAZOLE 40 MG TABLET.DR PO SCH (08:00)
--- NOTE | 2019-05-21 08:10 | NUR ---
TELE/RN NOTES PATIENT VERBALIZED OF HEADACHE IN THE RATE 10/23. ASK PATIENT IF SHE WANT NORCO PATIENT AGREED THAT SHE WILL TAKE NORCO, EXPLAINED THE RISK AND BENEFIT, NORCO 5/325MG 1 TAB WAS GIVEN. WILL CONTINUE TO MONITOR.
[2019-05-21] MEDS: AMIODARONE HCL 200 MG TABLET PO SCH ×2 (08:12→09:26)
[2019-05-21] MEDS: HYDROCODONE/APAP 5/325MG 1 EACH TABLET PO PRN (08:13)
--- NOTE | 2019-05-21 09:00 | NUR ---
MS/RN NOTES PATIENT WAS WEANING FROM OXYGEN NASAL CANNULA 4L/MIN TO 3L/MIN. DUE TO NO OXYGEN AT HOME. WILL CONTINUOUSLY MONITOR.
[2019-05-21] MEDS ORDERED: ATROPINE SULFATE 1 MG/10 ML DISP.SYRIN IV ONE (12:11)
[2019-05-21] MEDS: PIPERACILLIN /TAZOBACTAM 3.375 G in IV D5W 100 ML IV SCH ×2 (12:21→20:01)
--- NOTE | 2019-05-21 13:00 | NUR ---
TELE/RN NOTES PATIENT OXYGEN VIA NASAL CANNULA 3L/MIN IS WELL TOLERATED. WEAN OXYGEN TO 2L/MIN. WILL CONTINUE TO MONITOR.
--- NOTE | 2019-05-21 18:45 | NUR ---
TELE/RN CLOSING NOTES PATIENT LYING ON THE BED COMFORTABLY. PATIENT IS ALERT AND ORIENTED X3. PATIENT IN NO APPARENT DISTRESS NOTED. PATIENT WEAN OXYGEN TO 1L/MIN VIA NASAL CANNULA, OXYGEN IS WELL TOLERATED PATIENT WITH NO COMPLAINED OF PAIN AT THIS TIME. TELE MONITOR IN PLACE SR 68. IV IV FLUID NS 1L AT 75ML/HR ON AND INFUSING WELL. IV LINE AT LEFT AC # 18G AND RIGHT HAND #20G NO REDNESS, NO INFILTRATION NOTED. SEEN AND EXAMINED BY MD WITH ORDERS MADE AND CARRIED OUT. ALL DUE MEDS WAS GIVEN. KEPT PATIENT CLEAN AND DRY THE WHOLE SHIFT. ROUTINELY CHECKED EVERY 2 HOUR. BED IN LOWEST POSITION, SIDE RAILS UP X2. WILL ENDORSED TO AEROLOGIST FOR ENRIQUETA.
--- NOTE | 2019-05-21 19:05 | NUR ---
TIME LOCK EXPERT OPENING NOTES RECEIVED PATIENT SITTING IN BED, AWAKE ALERT AND ORIENTED X3, RESPIRATIONS EVEN AND UNLABORED WITH EQUAL RISE AND FALL OF CHEST, IV SITE TO LEFT AC #18 G INTACT AND PATENT, NO REDNESS, NO INFILTRATION PRESENT, ON DIGITAL MEDIA COORDINATOR SR 66. DENIES ANY PAIN OR DISCOMFORT AT THIS TIME, ON 2L VIA NC RESPIRATIONS EVEN AND UNLABORED WITH EQUAL RISE AND FALL OF CHEST. ORIENTED TO STAFF AND CALL LIGHT AND KEPT WITHIN REACH, LOW BED AND LOCKED , BED ALARM IN PLACE, FLUIDS AND SNACK PROVIDED REQUESTING TOILETING OFFERED BSC USED VOID X1. ALL NEEDS ATTENDED AT THIS TIME, WILL CONTINUE TO MONITOR AND ATTEND TO NEEDS.
[2019-05-21 20:00] VITALS: BP 152/76
[2019-05-21 20:12] VITALS: BP 152/76
--- NOTE | 2019-05-21 22:04 | NUR ---
GOLF STUD RIVETER NOTES PATIENT IS REFUSING PARKING LOT SUPERVISOR STATES " SHE WILL NOT PUT IT ON" DESPITE EDUCATION PROVIDED. SPOKE TO HOSPITALIST ALLAN MADE AWARE OF PT REQUEST FOR ENEMA NOT ORDERED AT THIS TIME PER HOSPITALIST MARYA MARTIN TO FOLLOW UP . MADE AWARE OF PATIENT REQUEST FOR XANAX NEW ORDER XANAX 0.5MG PO ONE TIME DOSE. PATIENT MADE AWARE. OFFERED MILK OF MAGNESIA PATIENT DOES NOT WANT AT THIS TIME.
--- NOTE | 2019-05-21 22:17 | NUR ---
SUMAC TANNER NOTES PT AGREED TO TRY MILK OF MAGNESIUM PRN GIVEN ORDERED.
[2019-05-21] MEDS ORDERED: ALPRAZOLAM 0.25 MG TABLET PO ONE (22:30)
[2019-05-22] VITALS: BP 152/70
[2019-05-22 00:10] VITALS: BP 136/69
[2019-05-22] MEDS: PIPERACILLIN /TAZOBACTAM 3.375 G in IV D5W 100 ML IV SCH ×3 (03:12→20:00)
[2019-05-22 04:30] VITALS: BP 152/95
--- NOTE | 2019-05-22 06:44 | NUR ---
SOCIAL INSURANCE ANALYST CLOSING NOTES PATIENT AWAKE ALERT AND ORIENTED X3, RESPIRATIONS EVEN AND UNLABORED WITH EQUAL RISE AND FALL OF CHEST, IV SITE TO LEFT AC #18 G INTACT AND PATENT, NO REDNESS, NO INFILTRATION PRESENT, ON FORGING PRESS SETTER UP SR 69. DENIES ANY PAIN OR DISCOMFORT AT THIS TIME, ON 2L VIA NC RESPIRATIONS EVEN AND UNLABORED WITH EQUAL RISE AND FALL OF CHEST. CALL LIGHT KEPT WITHIN REACH, LOW BED AND LOCKED , BED ALARM IN PLACE, FLUIDS AND SNACK PROVIDED REQUESTING TOILETING OFFERED BSC USED VOID X3. ALL NEEDS ATTENDED AT THIS TIME, WILL CONTINUE TO MONITOR AND ATTEND TO NEEDS AND ENDORSE TO NEXT SHIFT.
--- NOTE | 2019-05-22 07:30 | NUR ---
ms rn received patient on bed, awake,alert,oriented x3,not in any form of distress, respirations even and unlabored,no sob noted, denies pain at this time,all needs attended.
[2019-05-22 08:00] VITALS: BP 165/90
[2019-05-22] MEDS ORDERED: NIFEdipine XL (30MG) 30 MG TAB PO SCH (09:00)
--- NOTE | 2019-05-22 09:40 | NUR ---
ms veras breakfast served, due meds given tolerate well.
[2019-05-22] MEDS: PANTOPRAZOLE 40 MG TABLET.DR PO SCH (10:37)
[2019-05-22] MEDS: AMIODARONE HCL 200 MG TABLET PO SCH (10:37)
--- NOTE | 2019-05-22 12:00 | NUR ---
ms rn patient's iv is leaking, refused iv atb and refused to insert another iv, dr. lundberg made aware of that.
[2019-05-22] MEDS: RIVAROXABAN 15 MG TABLET PO SCH ×2 (12:15→21:09)
[2019-05-22 16:00] VITALS: BP 145/70
[2019-05-22] MEDS: IV NS 0.9% 1,000 ML IV PRN (17:41)
[2019-05-22] MEDS ORDERED: OXYMETAZOLINE HCL NASAL SPRAY 30 ML BOTTLE NS PRN (18:00)
--- NOTE | 2019-05-22 18:00 | NUR ---
ms rn on bed ,no distress noted.
[2019-05-22] MEDS: LOSARTAN POTASSIUM 50 MG TABLET PO SCH (18:16)
--- NOTE | 2019-05-22 19:30 | NUR ---
CLIP LOADING MACHINE FEEDER OPENING NOTES PATIENT AWAKE AND RESTING COMFORTABLY IN BED. A/OX3. ON 2L NC. NO S/S OF RESPIRATORY DISTRESS AND NO C/O PAIN AT THIS TIME. IV PRESENT ON LEFT AC, SIZE 18, INTACT & PATENT, HEP LOCKED. TELE MONITOR READING SINUS RHYTHM, HEART RATE 80. SAFETY MEASURES IN PLACE. BED LOCKED, ALARM ON, SIDE RAILS X2, CALL LIGHT WITHIN REACH. WILL CONTINUE TO MONITOR.
--- NOTE | 2019-05-22 19:40 | NUR ---
DISTRICT SALES LEADER NOTES PATIENT'S IV ON LEFT AC SIZE 18 DISLODGED AND LEAKING. IV REMOVED. PATIENT REFUSES TO HAVE A NEW IV PLACED AT THIS TIME. EXPLAINED TO PATIENT THAT SHE HAS A SCHEDULED IVPB ANTIOBIOTIC AT 1999 AND NEEDS AN IV TO RECEIVE THE MEDICATION. PATIENT STATED THAT SHE DOES NOT WANT THE IV ANTIBIOTIC OR A NEW IV. DR JAY SNYDER MADE AWARE.
[2019-05-22 20:00] VITALS: BP 142/58
[2019-05-22] MEDS: ALPRAZOLAM 1 MG TABLET PO PRN (21:08)
[2019-05-22] MEDS: ACETAMINOPHEN 325 MG TABLET PO PRN (21:08)
[2019-05-23] VITALS (7 sets, daily range): BP systolic 130–162; BP diastolic 67–84
[2019-05-23] MEDS: ACETAMINOPHEN 325 MG TABLET PO PRN ×2 (03:10→21:57)
[2019-05-23] MEDS: PIPERACILLIN /TAZOBACTAM 3.375 G in IV D5W 100 ML IV SCH ×2 (04:00→12:00)
--- NOTE | 2019-05-23 06:55 | NUR ---
DIRECTOR PRIVATE MUSIC THERAPY AGENCY CLOSING NOTES PATIENT AWAKE IN BED. A/OX3. ABLE TO VERBALIZE NEEDS. TELE MONITOR READING SINUS RHYTHM, HEART RATE 70. NO IV ACCESS PRESENT, NUTHALAPATHY AWARE. SAFETY MEASURES IN PLACE. BED LOCKED, SIDE RAILS X2, CALL LIGHT WITHIN REACH. WILL ENDORSE TO DAY SHIFT NURSE PLAN OF CARE.
[2019-05-23] MEDS: PANTOPRAZOLE 40 MG TABLET.DR PO SCH (08:21)
[2019-05-23] MEDS: AMIODARONE HCL 200 MG TABLET PO SCH (08:21)
[2019-05-23] MEDS: LOSARTAN POTASSIUM 50 MG TABLET PO SCH (08:22)
[2019-05-23] MEDS: NIFEdipine XL (30MG) 30 MG TAB PO SCH (08:22)
[2019-05-23] MEDS: ALPRAZOLAM 1 MG TABLET PO PRN ×2 (10:33→21:54)
[2019-05-23] MEDS ORDERED: NIFE-35 PO (11:11)
[2019-05-23] MEDS ORDERED: AMIO200T7 PO (11:11)
[2019-05-23] MEDS ORDERED: RIVA15TA PO (11:11)
[2019-05-23] MEDS ORDERED: LEVO500T75 PO (11:11)
[2019-05-23] MEDS ORDERED: CLON0.1T14 PO (11:11)
[2019-05-23] MEDS ORDERED: LOSA50TA3 PO (11:11)
[2019-05-23] MEDS: RIVAROXABAN 15 MG TABLET PO SCH (16:23)
[2019-05-23] MEDS: CLONIDINE HCL 0.1 MG TABLET PO PRN (16:51)
--- NOTE | 2019-05-23 19:35 | NUR ---
RESIDENTIAL TREATMENT COUNSELOR OPENING NOTES RECEIVED PATIENT FROM MORNING SHIFT, ALERT AND ORIENTED X 3. VERBALLY RESPONSIVE AND ABLE TO FOLLOW DIRECTIONS. BREATHING REGULAR AND UNLABORED ON ROOM AIR. NO IV ACCESS, MD AWARE. ON CARDIAC MONITORING WITH NSR AT 60bpm. DENIES ANY SUICIDAL/HOMICIDAL IDEATION AT THIS TIME. NO COMPLAINTS OF PAIN REPORTED. BED LOW AND LOCKED ON SEMI FOWLERS POSITION. CALL LIGHT IN REACH. WILL CONTINUE TO MONITOR.
--- NOTE | 2019-05-23 22:00 | NUR ---
HUMAN RESOURCE INTERN NOTES ANXIETY VERBALIZED, XANAX 1MG TABLET GIVEN BY MOUTH. NON-PHARMACOLOGICAL INTERVENTIONS PROVIDED. WILL CONTINUE TO MONITOR.
[2019-05-23] MEDS: HYDROCODONE/APAP 5/325MG 1 EACH TABLET PO PRN (23:47)
[2019-05-24] VITALS: BP 159/75
--- NOTE | 2019-05-24 | NUR ---
SEPTIC TANK SERVICE TECHNICIAN NOTES COMPLAINED OF 7/10 HEADACHE, NORCO 5/325 GIVEN BY MOUTH. NON-PHARMACOLOGICAL INTERVENTIONS PROVIDED. VITAL SIGNS WNL. WILL CONTINUE TO MONITOR.
--- NOTE | 2019-05-24 06:20 | NUR ---
GROUP HOME SUPERVISOR CLOSING NOTES PATIENT IN BED ALERT AND ORIENTED X 3. AFEBRILE WITH NO S/S OF DISTRESS OBSERVED. NO IV ACCESS. MAINTAINED ON CARDIAC MONITORING WITH NSR AT 65bpm. NO COMPLAINTS OF PAIN REPORTED AT THIS TIME. BED LOW AND LOCKED ON SEMI FOWLERS POSITION. CALL LIGHT IN REACH. WILL ENDORSE TO MORNING SHIFT FOR ENRIQUETA.
[2019-05-24 07:56] VITALS: BP 165/93
[2019-05-24 08:00] VITALS: BP 165/93
[2019-05-24] MEDS: NIFEdipine XL (30MG) 30 MG TAB PO SCH (08:07)
[2019-05-24] MEDS: AMIODARONE HCL 200 MG TABLET PO SCH (08:07)
[2019-05-24] MEDS: LOSARTAN POTASSIUM 50 MG TABLET PO SCH (08:07)
[2019-05-24] MEDS: PANTOPRAZOLE 40 MG TABLET.DR PO SCH (08:07)
[2019-05-24] MEDS ORDERED: VALSARTAN 80 MG TABLET PO SCH (09:00)
[2019-05-24] MEDS: ALPRAZOLAM 1 MG TABLET PO PRN (10:02)
[2019-05-24] MEDS ORDERED: VALS80TA2 PO (10:33)
[2019-05-24] MEDS: CLONIDINE HCL 0.1 MG TABLET PO PRN (14:28)
[2019-05-24 16:00] VITALS: BP 164/93
--- NOTE | 2019-05-24 17:20 | NUR ---
Patient awake alert and oriented x4 . Patient cleared for d/c home by MD. VS are stable;143/72 hr 69, afebrile. Breathing unlabored and even on room air. All needs attended.Patient kept comfortable. D/C instructions and education on new BP meds provided; patient verbalized understanding. D/C papers sighed by the patient, valuable form sighed and all belongings with the patient. Patient refused d/c pictures. Patient picked up by ambulance.
== END 2019-05-24 17:20 | disposition home or self-care (01) | DRG 177 ==
LOC: ER 18:14 → TELE 21:30 → MED 05-24 14:21
PROVIDERS: ADMIT Nurse Practitioner Acute Care
DX: J15.6 Pneumonia due to other Gram-negative bacteria (principal); N17.0 Acute kidney failure with tubular necrosis; E44.1 Mild protein-calorie malnutrition; Z68.41 Body mass index [BMI] 40.0-44.9, adult; I48.91 Unspecified atrial fibrillation; D64.9 Anemia, unspecified; E86.1 Hypovolemia; E83.52 Hypercalcemia; Z87.01 Personal history of pneumonia (recurrent); Z87.891 Personal history of nicotine dependence; I10 Essential (primary) hypertension; R73.9 Hyperglycemia, unspecified; E88.09 Other disorders of plasma-protein metabolism, not elsewhere classified; E66.01 Morbid (severe) obesity due to excess calories; R74.8 Abnormal levels of other serum enzymes; R00.1 Bradycardia, unspecified; T46.2X5A Adverse effect of other antidysrhythmic drugs, initial encounter; J44.9 Chronic obstructive pulmonary disease, unspecified; D72.829 Elevated white blood cell count, unspecified; Z91.81 History of falling; T44.7X5A Adverse effect of beta-adrenoreceptor antagonists, initial encounter; Y92.009 Unspecified place in unspecified non-institutional (private) residence as the place of occurrence of the external cause
CPT/HCPCS: 36415; 71045-TC; 73030-TC; 80048-TC; 80053-TC; 80061-TC; 80076-TC; 81000-TC; 83605-TC; 83735-TC; 84100-TC; 84484-TC; 85025-TC; 85730-TC; 86850-TC; 87040-TC; 87081-TC; 87086-TC; G0378; J0461; J0610; J0692; J1265; J1610; J2405; J2543; J3370; J7030; J7060

== ENCOUNTER 2022-10-25 16:25 | Emergency (ER) | payer MEDICARE, OTHER ==
[~2022-10-25] VITALS: Ht 160 cm; Wt 90.7 kg
[~2022-10-25 16:25] MED LIST changes: -AMIO200T4 PO; +AMIO200T7 PO; -AMOX-430 PO; +CLON0.1T14 PO; +LEVO500T23 PO; -METO25TA4 PO; -METO50TA16 PO; +NIFE-35 PO; -RIVA10TA PO; +RIVA15TA PO; +VALS80TA2 PO
[2022-10-25] MEDS ORDERED: HYDR-3980 PO (18:06)
[2022-10-25] MEDS ORDERED: ALPR1TAB2 PO (18:06)
[2022-10-25] MEDS ORDERED: DOCU100C36 PO (18:06)
[2022-10-25] MEDS ORDERED: BISA-79 PO (18:06)
[2022-10-25] MEDS ORDERED: FLUT16SP16 BNOSTRILS (18:06)
[2022-10-25] MEDS ORDERED: ESOM40CA PO (18:06)
[2022-10-25] MEDS ORDERED: GABA300C PO (18:06)
[2022-10-25] MEDS ORDERED: CLON0.1T PO (18:06)
[2022-10-25] MEDS ORDERED: AMIO200T5 PO (18:06)
[2022-10-25] MEDS ORDERED: LINA290C PO (18:06)
[2022-10-25] MEDS ORDERED: DICLOFENAC SODIUM TP (18:06)
[2022-10-25] MEDS ORDERED: DAPA5TAB PO (18:06)
[2022-10-25] MEDS ORDERED: CHOL200059 PO (18:06)
[2022-10-25] MEDS ORDERED: APIX5TAB PO (18:06)
[2022-10-25] MEDS ORDERED: ICOS1CAP PO (18:06)
[2022-10-25] MEDS ORDERED: ROSU10TA2 PO (18:06)
[2022-10-25 18:56] LABS: BASOPHILS # (AUTO) 0.1 K/uL (0.0-0.2); BASOPHILS % (AUTO) 0.5 % (0.0-2.0); EOSINOPHILS # (AUTO) 0.3 K/uL (0.0-0.7); EOSINOPHILS % (AUTO) 2.7 % (0.0-6.0); HEMATOCRIT 37 % (33-45); HEMOGLOBIN 11.8 g/dL (11.5-14.8); LYMPHOCYTES % (AUTO) 19.4 % (20.0-44.0); MEAN CORPUSCULAR HEMOGLOBIN 26 PG (26.0-33.0); MEAN CORPUSCULAR HGB CONC 32 g/dl (31.0-36.0); MEAN CORPUSCULAR VOLUME 83 fL (82-100); MONOCYTES # (AUTO) 1.4 K/uL (0.1-1.30); MONOCYTES % (AUTO) 13.6 % (2.0-12.0); NEUTROPHILS # (AUTO) 6.7 K/uL (1.8-8.9); NEUTROPHILS % (AUTO) 63.8 % (43.0-81.0); PLATELET COUNT (AUTO) 156 K/uL (150-450); RED BLOOD CELL COUNT(AUTO) 4.47 MIL/uL (4.0-5.2); RED CELL DISTRIBUTION WIDTH 19.1 % (11.5-15.0); WHITE BLOOD COUNT (AUTO) 10.5 K/uL (4.3-11.0)
[2022-10-25 19:17] LABS: ALANINE AMINOTRANSFERASE 19 U/L (12-78); ALBUMIN 3.2 g/dL (3.4-5.0); ALCOHOL, BLOOD < 3 mg/dL (0-10); ALKALINE PHOSPHATASE 173 U/L (46-116); ASPARTATE AMINOTRANSFERASE 30 U/L (15-37); BILIRUBIN,DIRECT 0.2 mg/dL (0.0-0.2); BILIRUBIN,TOTAL 0.6 mg/dL (0.2-1.0); CALCIUM, SERUM 10.9 mg/dL (8.5-10.1); CARBON DIOXIDE 30 mmol/L (21-32); CREATININE 1.8 mg/dL (0.6-1.3); GLUCOSE 125 mg/dL (74-106); TOTAL PROTEIN, SERUM 6.9 g/dL (6.4-8.2); UREA NITROGEN, BLOOD 36 mg/dL (7-18)
[2022-10-25 19:20] LABS: SALICYLATE < 2.3 mg/dL (2.8-20.0)
[2022-10-25 19:21] LABS: ACETAMINOPHEN <10 ug/ml (10-30)
[2022-10-25 19:28] LABS: CHLORIDE 101 mmol/L (98-107); POTASSIUM 4.2 mmol/L (3.5-5.1); SODIUM SERUM 135 mmol/L (136-145)
[2022-10-25] MEDS ORDERED: NICARDIPINE HCL 40 MG in IV NS 0.9% 184 ML IV PRN (19:30)
[2022-10-25] MEDS ORDERED: PROTHROMBIN COMPLEX CONCENTR 500 UNIT VIAL IV ONE ×2 (19:30)
[2022-10-25] MEDS ORDERED: LEVETIRACETAM (500MG) 500 MG/5 ML VIAL IV ONE (19:41)
[2022-10-25] MEDS ORDERED: LEVETIRACETAM (500MG) 500 MG in IV NS 0.9% 100 ML IV SCH (20:00)
[2022-10-25 20:08] LABS: INR 1.13 (0.91-1.10); PARTIAL THROMBOPLASTIN TIME 30.7 SEC (24.3-34.3); PROTHROMBIN TIME 11.8 SECS (9.2-11.1)
[2022-10-25 20:55] VITALS: BP 135/57; TEMP 98.1; O2SAT 100
== END 2022-10-25 20:56 ==
LOC: ER 16:30
DX: I62.01 Nontraumatic acute subdural hemorrhage (principal); I10 Essential (primary) hypertension; I48.91 Unspecified atrial fibrillation; Z79.899 Other long term (current) drug therapy; Z98.890 Other specified postprocedural states; Z88.1 Allergy status to other antibiotic agents
CPT/HCPCS: 99291; 96365; 96375; 70450; 85025; 80048; 80076; 85610; 85730; 36415; 80143; 80320; J7030 ×2; A4223 ×3; J1953 ×2; J7168 ×2; G0480

== ENCOUNTER 2023-10-30 16:35 | Inpatient (IN) | payer MEDICARE, OTHER ==
[~2023-10-30] VITALS: Ht 160 cm; Wt 101.6 kg
[~2023-10-30 16:35] MED LIST changes: +ALPR1TAB2 PO; +AMIO200T5 PO; -AMIO200T7 PO; +APIX5TAB PO; +BISA-79 PO; +CHOL200059 PO; +CLON0.1T PO; -CLON0.1T14 PO; +DAPA5TAB PO; +DICLOFENAC SODIUM TP; +DOCU100C36 PO; +ESOM40CA PO; +FLUT16SP16 BNOSTRILS; +GABA300C PO; +HYDR-3980 PO; +ICOS1CAP PO; -LEVO500T23 PO; +LINA290C PO; -NIFE-35 PO; -NITR0.4T48 SL; +NITR100C PO; -POLY30DR EACHEYE; -RIVA15TA PO; +ROSU10TA2 PO; -VALS80TA2 PO
[2023-10-30] MEDS: KETOROLAC TROMETHAMINE 15 MG/ML VIAL IV ONE (17:30)
[2023-10-30] MEDS ORDERED: ONDANSETRON HCL/PF 4 MG/2 ML VIAL ONE (18:11)
[2023-10-30] MEDS: ONDANSETRON HCL/PF 4 MG/2 ML VIAL IV ONE (18:15)
[2023-10-30 18:19] LABS: BASOPHILS # (AUTO) 0.1 K/uL (0.0-0.2); BASOPHILS % (AUTO) 0.5 % (0.0-2.0); EOSINOPHILS # (AUTO) 0.1 K/uL (0.0-0.7); EOSINOPHILS % (AUTO) 1.3 % (0.0-6.0); HEMATOCRIT 41 % (33-45); HEMOGLOBIN 13.3 g/dL (11.5-14.8); LYMPHOCYTES # (AUTO) 1.9 K/uL (0.8-4.8); LYMPHOCYTES % (AUTO) 18.1 % (20.0-44.0); MEAN CORPUSCULAR HEMOGLOBIN 28 PG (26.0-33.0); MEAN CORPUSCULAR HGB CONC 33 g/dl (31.0-36.0); MEAN CORPUSCULAR VOLUME 85 fL (82-100); MONOCYTES # (AUTO) 1.2 K/uL (0.1-1.30); MONOCYTES % (AUTO) 10.9 % (2.0-12.0); NEUTROPHILS # (AUTO) 7.4 K/uL (1.8-8.9); NEUTROPHILS % (AUTO) 69.2 % (43.0-81.0); PLATELET COUNT (AUTO) 154 K/uL (150-450); RED CELL DISTRIBUTION WIDTH 15.4 % (11.5-15.0); WHITE BLOOD COUNT (AUTO) 10.7 K/uL (4.3-11.0)
[2023-10-30] MEDS: ONDANSETRON HCL/PF - ER 4 MG/2 ML VIAL IV ONE (18:19)
[2023-10-30 18:25] LABS: CALCIUM, SERUM 10.8 mg/dL (8.5-10.1); CARBON DIOXIDE 30 mmol/L (21-32); CHLORIDE 102 mmol/L (98-107); CREATININE 1.1 mg/dL (0.6-1.3); GLUCOSE 104 mg/dL (74-106); POTASSIUM 4.2 mmol/L (3.5-5.1); SODIUM SERUM 137 mmol/L (136-145); UREA NITROGEN, BLOOD 20 mg/dL (7-18)
[2023-10-30 18:27] LABS: APPEARANCE,URINE Clear (CLEAR); BILIRUBIN,URINE Negative (NEGATIVE); BLOOD, URINE Negative Ery/uL (NEGATIVE); COLOR,URINE YELLOW (YELLOW); KETONES,URINE Negative (NEGATIVE); LEUKOCYTE ESTERASE ,URINE Negative (NEGATIVE); NITRITE, URINE Negative (NEGATIVE); PROTEIN,URINE Negative (NEGATIVE); UGLUCOSE Negative (NEGATIVE); UROBILINOGEN,URINE 0.2 EU/dL (0.2)
[2023-10-30] MEDS ORDERED: KETOROLAC TROMETHAMINE 15 MG/ML VIAL ONE (18:28)
[2023-10-30] MEDS ORDERED: LACTULOSE 10 G/15 ML UDC (PYXIS) ONE (18:28)
[2023-10-30] MEDS ORDERED: MINERAL OIL 133 ML (PYXIS) 1 EA ENEMA RC ONE (18:28)
[2023-10-30] MEDS: MINERAL OIL 133 ML (PYXIS) 1 EA ENEMA RC ONE (18:29)
[2023-10-30 18:31] LABS: ALANINE AMINOTRANSFERASE 21 U/L (12-78); ALBUMIN 3.6 g/dL (3.4-5.0); ALKALINE PHOSPHATASE 259 U/L (46-116); ASPARTATE AMINOTRANSFERASE 26 U/L (15-37); BILIRUBIN,DIRECT 0.1 mg/dL (0.0-0.2); BILIRUBIN,TOTAL 0.6 mg/dL (0.2-1.0); LIPASE 25 U/L (16-77); TOTAL PROTEIN, SERUM 7.2 g/dL (6.4-8.2)
[2023-10-30] MEDS: LACTULOSE 10 G/15 ML UDC (PYXIS) PO ONE (18:35)
[2023-10-30] MEDS: HYDROMORPHONE 1 MG/1 ML DISP.SYRIN IV ONE (19:56)
[2023-10-30] MEDS ORDERED: Z GUARD REMEDY 4 OZ OINT TP PRN (20:30)
[2023-10-30] MEDS ORDERED: ACETAMINOPHEN 650 MG/SUPP.RECT RC PRN (20:30)
[2023-10-30 21:00] VITALS: BP 131/75; TEMP 98.1; O2SAT 100
[2023-10-30] MEDS ORDERED: MINERAL OIL 133 ML (PYXIS) 1 EA ENEMA RC PRN (21:00)
[2023-10-30] MEDS: IV NS 0.9% 1,000 ML IV PRN (21:33)
[2023-10-31] MEDS: ONDANSETRON HCL/PF 4 MG/2 ML VIAL IVP PRN (00:18)
[2023-10-31] MEDS: METOCLOPRAMIDE HCL 10 MG/2 ML VIAL IV ONE (01:41)
[2023-10-31 04:00] VITALS: BP 114/54; TEMP 98; O2SAT 96
[2023-10-31] MEDS: BISACODYL SUPP (10 MG) 10 MG/SUPP.RECT SUPP.RECT RC ONE (04:16)
[2023-10-31 08:00] VITALS: BP 142/67; TEMP 98.4; O2SAT 92
[2023-10-31] MEDS: PANTOPRAZOLE 40 MG VIAL IV SCH (08:04)
[2023-10-31] MEDS ORDERED: BISACODYL SUPP (10 MG) 10 MG/SUPP.RECT SUPP.RECT RC SCH (09:00)
[2023-10-31] MEDS ORDERED: CRAN425C6 PO (11:33)
[2023-10-31] MEDS ORDERED: APIX2.5T PO (11:33)
[2023-10-31] MEDS ORDERED: TAMS-12 PO (11:33)
[2023-10-31] MEDS ORDERED: MIRABEGRON PO (11:33)
[2023-10-31] MEDS ORDERED: MAGN400T52 PO (11:33)
[2023-10-31] MEDS: MORPHINE SULFATE INJ 2 MG/ML DISP.SYRIN IV ONE (12:33)
[2023-10-31] MEDS: LIDOCAINE 2% JEL UROJET 10 ML MM ONE (12:33)
[2023-10-31 16:00] VITALS: BP 129/65; TEMP 97.7; O2SAT 92
[2023-10-31] MEDS: LORAZEPAM INJ 2 MG/ML VIAL IVP ONE (21:33)
[2023-11-01 02:57] LABS: URINE TOTAL PROTEIN 22.9 mg/dL (0-11.9)
[2023-11-01 04:00] VITALS: BP 138/69; TEMP 98.4; O2SAT 95
[2023-11-01 06:38] LABS: BASOPHILS % (AUTO) 0.3 % (0.0-2.0); EOSINOPHILS # (AUTO) 0.1 K/uL (0.0-0.7); EOSINOPHILS % (AUTO) 1.1 % (0.0-6.0); HEMATOCRIT 38 % (33-45); HEMOGLOBIN 12.2 g/dL (11.5-14.8); LYMPHOCYTES # (AUTO) 2.1 K/uL (0.8-4.8); LYMPHOCYTES % (AUTO) 30.4 % (20.0-44.0); MEAN CORPUSCULAR HEMOGLOBIN 27 PG (26.0-33.0); MEAN CORPUSCULAR HGB CONC 32 g/dl (31.0-36.0); MEAN CORPUSCULAR VOLUME 84 fL (82-100); MONOCYTES # (AUTO) 1.2 K/uL (0.1-1.30); MONOCYTES % (AUTO) 17.1 % (2.0-12.0); NEUTROPHILS # (AUTO) 3.5 K/uL (1.8-8.9); NEUTROPHILS % (AUTO) 51.1 % (43.0-81.0); PLATELET COUNT (AUTO) 148 K/uL (150-450); RED BLOOD CELL COUNT(AUTO) 4.48 MIL/uL (4.0-5.2); WHITE BLOOD COUNT (AUTO) 6.9 K/uL (4.3-11.0)
[2023-11-01 06:49] LABS: CARBON DIOXIDE 25 mmol/L (21-32); CHLORIDE 104 mmol/L (98-107); GLUCOSE 95 mg/dL (74-106); POTASSIUM 4.1 mmol/L (3.5-5.1); SODIUM SERUM 139 mmol/L (136-145); UREA NITROGEN, BLOOD 30 mg/dL (7-18)
[2023-11-01 07:41] LABS: MAGNESIUM 2.2 mg/dL (1.8-2.4); PHOSPHORUS 2.9 mg/dL (2.5-4.9)
[2023-11-01 08:00] VITALS: BP 127/64; TEMP 98.1; O2SAT 96
[2023-11-01] MEDS: IV D5/ 0.9% NACL 1,000 ML IV PRN (09:20)
[2023-11-01 10:19] LABS: INR 1.09 (0.91-1.10); PROTHROMBIN TIME 11.5 SECS (9.2-11.1)
[2023-11-01 11:16] LABS: ANISOCYTOSIS 1+; BASOPHILS % (MANUAL) 0 % (0.0-2.0); EOSINOPHILS % (MANUAL) 4 % (0-4); LYMPHOCYTES % (MANUAL) 28 % (16-48); MONOCYTES % (MANUAL) 15 % (0-11.0); NEUTROPHILS % (MANUAL) 53 (42-76); PLATELET ESTIMATE ADEQUATE
[2023-11-01] MEDS ORDERED: ANESTHESIA TRAY IN PYXIS 1 EA TRAY MC ONE (13:35)
[2023-11-01] MEDS ORDERED: LIDOCAINE 1%-EPI 1:100,000 20 ML VIAL ONE (13:35)
[2023-11-01] MEDS ORDERED: BUPIVACAINE 0.5 % PF 150 MG/30 ML VIAL ONE (13:35)
[2023-11-01] MEDS ORDERED: BACITRACIN ZINC OINT (15 GM) 15 GM TUBE TP ONE (13:35)
[2023-11-01] MEDS ORDERED: FENTANYL PF 100MCG/2ML AMPUL ONE (17:07)
[2023-11-01] MEDS ORDERED: MORPHINE SULFATE INJ 4 MG/ML DISP.SYRIN ONE (17:08)
[2023-11-01] MEDS ORDERED: MIDAZOLAM HCL 2 MG/2ML VIAL ONE (17:08)
[2023-11-01 20:00] VITALS: BP_SYST 144; BP_SYST 179; BP_DIAS 83; BP_DIAS 93; TEMP 97.8; O2SAT 97; O2SAT 98
[2023-11-01] MEDS: HYDROMORPHONE 1 MG/1 ML DISP.SYRIN IV PRN (20:18)
[2023-11-01] MEDS: IV LR 1000 ML 1,000 ML IV PRN (20:20)
[2023-11-01] MEDS ORDERED: IV D5/ 0.9% NACL 1,000 ML IV PRN (20:30)
[2023-11-01 21:00] VITALS: BP 144/74; O2SAT 100
[2023-11-01] MEDS ORDERED: hydrALAZINE HCL IV 20 MG VIAL IV PRN (21:00)
[2023-11-01 22:00] VITALS: BP 149/65; O2SAT 100
[2023-11-01 23:00] VITALS: BP 149/70; O2SAT 100
[2023-11-02] VITALS (35 sets, daily range): BP systolic 126–172; BP diastolic 49–90; TEMP 97.6–99.5; O2SAT 86–100
[2023-11-02 04:42] LABS: BASOPHILS % (AUTO) 0.1 % (0.0-2.0); EOSINOPHILS # (AUTO) 0.1 K/uL (0.0-0.7); EOSINOPHILS % (AUTO) 0.5 % (0.0-6.0); HEMATOCRIT 36 % (33-45); HEMOGLOBIN 11.5 g/dL (11.5-14.8); LYMPHOCYTES # (AUTO) 1.5 K/uL (0.8-4.8); LYMPHOCYTES % (AUTO) 14.6 % (20.0-44.0); MEAN CORPUSCULAR HEMOGLOBIN 27 PG (26.0-33.0); MEAN CORPUSCULAR HGB CONC 32 g/dl (31.0-36.0); MEAN CORPUSCULAR VOLUME 87 fL (82-100); MONOCYTES # (AUTO) 1.1 K/uL (0.1-1.30); MONOCYTES % (AUTO) 10.9 % (2.0-12.0); NEUTROPHILS # (AUTO) 7.6 K/uL (1.8-8.9); NEUTROPHILS % (AUTO) 73.9 % (43.0-81.0); PLATELET COUNT (AUTO) 129 K/uL (150-450); RED BLOOD CELL COUNT(AUTO) 4.21 MIL/uL (4.0-5.2); RED CELL DISTRIBUTION WIDTH 14.9 % (11.5-15.0); WHITE BLOOD COUNT (AUTO) 10.4 K/uL (4.3-11.0)
[2023-11-02 05:00] LABS: CALCIUM, SERUM 9.7 mg/dL (8.5-10.1); CARBON DIOXIDE 22 mmol/L (21-32); CHLORIDE 109 mmol/L (98-107); CREATININE 0.8 mg/dL (0.6-1.3); GLUCOSE 92 mg/dL (74-106); POTASSIUM 4.2 mmol/L (3.5-5.1); SODIUM SERUM 141 mmol/L (136-145); UREA NITROGEN, BLOOD 23 mg/dL (7-18)
[2023-11-02] MEDS: HYDROMORPHONE 1 MG/1 ML DISP.SYRIN IV PRN (11:37)
[2023-11-02] MEDS: LORAZEPAM INJ 2 MG/ML VIAL IV ONE (14:07)
[2023-11-02] MEDS: HYDROMORPHONE 1 MG/1 ML DISP.SYRIN IV ONE (16:59)
[2023-11-02] MEDS: HEPARIN SODIUM, PORCINE 5000 UNITS/1 ML VIAL SQ SCH (20:40)
[2023-11-02] MEDS: NITROGLYCERIN PACKET 1 GM PACKET TOP PRN (23:55)
[2023-11-03] VITALS (15 sets, daily range): BP systolic 131–153; BP diastolic 60–87; TEMP 98.1–99.3; O2SAT 96–99
[2023-11-03 04:48] LABS: BASOPHILS % (AUTO) 0.3 % (0.0-2.0); EOSINOPHILS # (AUTO) 0.2 K/uL (0.0-0.7); EOSINOPHILS % (AUTO) 1.5 % (0.0-6.0); HEMATOCRIT 37 % (33-45); HEMOGLOBIN 11.8 g/dL (11.5-14.8); LYMPHOCYTES # (AUTO) 1.7 K/uL (0.8-4.8); LYMPHOCYTES % (AUTO) 16.4 % (20.0-44.0); MEAN CORPUSCULAR HEMOGLOBIN 27 PG (26.0-33.0); MEAN CORPUSCULAR HGB CONC 32 g/dl (31.0-36.0); MEAN CORPUSCULAR VOLUME 86 fL (82-100); MONOCYTES # (AUTO) 1.5 K/uL (0.1-1.30); MONOCYTES % (AUTO) 14.3 % (2.0-12.0); NEUTROPHILS # (AUTO) 7.1 K/uL (1.8-8.9); NEUTROPHILS % (AUTO) 67.5 % (43.0-81.0); PLATELET COUNT (AUTO) 138 K/uL (150-450); RED BLOOD CELL COUNT(AUTO) 4.32 MIL/uL (4.0-5.2); RED CELL DISTRIBUTION WIDTH 15.3 % (11.5-15.0); WHITE BLOOD COUNT (AUTO) 10.5 K/uL (4.3-11.0)
[2023-11-03] MEDS: MORPHINE SULFATE INJ 4 MG/ML DISP.SYRIN IV ONE (13:00)
[2023-11-03] MEDS: LORAZEPAM INJ 2 MG/ML VIAL IV PRN (21:25)
[2023-11-04] VITALS: BP 125/57; TEMP 97.9; O2SAT 97
[2023-11-04 04:00] VITALS: BP 143/58; TEMP 98.9; O2SAT 94
[2023-11-04 05:54] LABS: BASOPHILS % (AUTO) 0.6 % (0.0-2.0); EOSINOPHILS # (AUTO) 0.3 K/uL (0.0-0.7); EOSINOPHILS % (AUTO) 3.4 % (0.0-6.0); HEMATOCRIT 33 % (33-45); HEMOGLOBIN 10.3 g/dL (11.5-14.8); LYMPHOCYTES # (AUTO) 1.6 K/uL (0.8-4.8); LYMPHOCYTES % (AUTO) 21.4 % (20.0-44.0); MEAN CORPUSCULAR HEMOGLOBIN 28 PG (26.0-33.0); MEAN CORPUSCULAR HGB CONC 32 g/dl (31.0-36.0); MEAN CORPUSCULAR VOLUME 86 fL (82-100); MONOCYTES % (AUTO) 13.9 % (2.0-12.0); NEUTROPHILS # (AUTO) 4.5 K/uL (1.8-8.9); NEUTROPHILS % (AUTO) 60.7 % (43.0-81.0); PLATELET COUNT (AUTO) 129 K/uL (150-450); RED BLOOD CELL COUNT(AUTO) 3.76 MIL/uL (4.0-5.2); RED CELL DISTRIBUTION WIDTH 15.1 % (11.5-15.0); WHITE BLOOD COUNT (AUTO) 7.5 K/uL (4.3-11.0)
[2023-11-04 06:26] LABS: ALANINE AMINOTRANSFERASE < 6 U/L (12-78); ALBUMIN 2.2 g/dL (3.4-5.0); ALKALINE PHOSPHATASE 148 U/L (46-116); ASPARTATE AMINOTRANSFERASE 8 U/L (15-37); BILIRUBIN,TOTAL 0.7 mg/dL (0.2-1.0); CALCIUM, SERUM 11.1 mg/dL (8.5-10.1); CARBON DIOXIDE 30 mmol/L (21-32); CHLORIDE 108 mmol/L (98-107); CREATININE 0.7 mg/dL (0.6-1.3); GLUCOSE 92 mg/dL (74-106); MAGNESIUM 1.7 mg/dL (1.8-2.4); POTASSIUM 4.1 mmol/L (3.5-5.1); SODIUM SERUM 142 mmol/L (136-145); TOTAL PROTEIN, SERUM 5.7 g/dL (6.4-8.2); UREA NITROGEN, BLOOD 22 mg/dL (7-18)
[2023-11-04] MEDS ORDERED: Magnesium 1GM/D5W 100ML PREMIX PIGGYBACK IV ONE (07:00)
[2023-11-04] MEDS: Magnesium 1GM/D5W 100ML PREMIX 100 ML IV SCH (07:50)
[2023-11-04 08:05] VITALS: BP 144/65; TEMP 97.5; O2SAT 97
[2023-11-04 12:10] VITALS: BP 133/67; TEMP 98.1; O2SAT 99
[2023-11-04 16:23] VITALS: BP 128/63; TEMP 98.1; O2SAT 100
[2023-11-04] MEDS: HYDROMORPHONE 1 MG/1 ML DISP.SYRIN IV PRN (17:28)
[2023-11-04 20:00] VITALS: BP 131/58; TEMP 98.6; O2SAT 99
[2023-11-05] MEDS: IV D5/0.45 NACL 1,000 ML IV PRN (01:11)
[2023-11-05 04:30] VITALS: BP 129/61; TEMP 98.1; O2SAT 99
[2023-11-05 05:00] VITALS: BP 129/61; TEMP 98.1; O2SAT 99
[2023-11-05 08:00] VITALS: BP 134/66; TEMP 98.2; O2SAT 99
[2023-11-05 08:01] LABS: BASOPHILS % (AUTO) 0.6 % (0.0-2.0); EOSINOPHILS # (AUTO) 0.2 K/uL (0.0-0.7); EOSINOPHILS % (AUTO) 2.3 % (0.0-6.0); HEMATOCRIT 35 % (33-45); LYMPHOCYTES # (AUTO) 1.7 K/uL (0.8-4.8); LYMPHOCYTES % (AUTO) 21.8 % (20.0-44.0); MEAN CORPUSCULAR HEMOGLOBIN 27 PG (26.0-33.0); MEAN CORPUSCULAR HGB CONC 32 g/dl (31.0-36.0); MEAN CORPUSCULAR VOLUME 86 fL (82-100); MONOCYTES # (AUTO) 0.9 K/uL (0.1-1.30); MONOCYTES % (AUTO) 12.4 % (2.0-12.0); NEUTROPHILS # (AUTO) 4.8 K/uL (1.8-8.9); NEUTROPHILS % (AUTO) 62.9 % (43.0-81.0); PLATELET COUNT (AUTO) 89 K/uL (150-450); RED BLOOD CELL COUNT(AUTO) 4.04 MIL/uL (4.0-5.2); RED CELL DISTRIBUTION WIDTH 15.1 % (11.5-15.0); WHITE BLOOD COUNT (AUTO) 7.6 K/uL (4.3-11.0)
[2023-11-05 08:21] LABS: CALCIUM, SERUM 11.6 mg/dL (8.5-10.1); CARBON DIOXIDE 27 mmol/L (21-32); CHLORIDE 106 mmol/L (98-107); CREATININE 0.5 mg/dL (0.6-1.3); GLUCOSE 103 mg/dL (74-106); PHOSPHORUS 1.8 mg/dL (2.5-4.9); POTASSIUM 4.7 mmol/L (3.5-5.1); SODIUM SERUM 138 mmol/L (136-145); UREA NITROGEN, BLOOD 19 mg/dL (7-18)
[2023-11-05 10:41] LABS: PLATELET ESTIMATE DECREASED
[2023-11-05] MEDS: NEUTRA PHOS 1 POWD.PACKET PO SCH (11:09)
[2023-11-05] MEDS ORDERED: ALPRAZOLAM 0.25 MG TABLET PO PRN (12:00)
[2023-11-05] MEDS ORDERED: HYDROMORPHONE 1 MG/1 ML DISP.SYRIN IV PRN (12:30)
[2023-11-05] MEDS ORDERED: FLUTICASONE PROPIONATE 16 GM BOTTLE NS PRN (12:30)
[2023-11-05] MEDS: ACETAMINOPHEN ES 500 MG TABLET PO SCH (12:43)
[2023-11-05] MEDS: GABAPENTIN 100 MG CAPSULE PO SCH (12:43)
[2023-11-05 13:00] VITALS: BP 134/66; TEMP 98.2; O2SAT 99
[2023-11-05] MEDS: HYDROCODONE/APAP 5/325MG TABLET PO PRN (15:18)
[2023-11-05 17:00] VITALS: BP 135/62; TEMP 98.6; O2SAT 99
[2023-11-05 21:00] VITALS: BP 129/64; TEMP 98.1; O2SAT 95
[2023-11-05] MEDS ORDERED: CELECOXIB 100 MG CAPSULE PO SCH (21:00)
[2023-11-05] MEDS: ZOLPIDEM TARTRATE 5 MG TABLET PO PRN (21:25)
[2023-11-05] MEDS: TAMSULOSIN 0.4 MG CAP.SR.24H PO SCH (21:25)
[2023-11-06 05:00] VITALS: BP 145/65; TEMP 97.7; O2SAT 96
[2023-11-06 08:00] VITALS: BP 132/67; TEMP 97.7; O2SAT 96
[2023-11-06] MEDS ORDERED: Magnesium 1 GM/2 ML VIAL IV ONE (08:30)
[2023-11-06] MEDS: NA PHOS,M-B/NA PHOS,DI-BA 1 EA ENEMA RC PRN (08:41)
[2023-11-06] MEDS: DOCUSATE SODIUM 100 MG CAPSULE PO SCH (08:41)
[2023-11-06] MEDS: Magnesium 1GM/D5W 100ML PREMIX 100 ML IV SCH (08:42)
[2023-11-06] MEDS: MAGNESIUM CITRATE 296 ML BOTTLE PO ONE (08:50)
[2023-11-06 09:09] LABS: BASOPHILS % (AUTO) 0.4 % (0.0-2.0); EOSINOPHILS # (AUTO) 0.2 K/uL (0.0-0.7); EOSINOPHILS % (AUTO) 3.2 % (0.0-6.0); HEMATOCRIT 31 % (33-45); LYMPHOCYTES # (AUTO) 1.4 K/uL (0.8-4.8); LYMPHOCYTES % (AUTO) 20.1 % (20.0-44.0); MEAN CORPUSCULAR HEMOGLOBIN 27 PG (26.0-33.0); MEAN CORPUSCULAR HGB CONC 32 g/dl (31.0-36.0); MEAN CORPUSCULAR VOLUME 84 fL (82-100); MONOCYTES # (AUTO) 0.8 K/uL (0.1-1.30); MONOCYTES % (AUTO) 12.2 % (2.0-12.0); NEUTROPHILS # (AUTO) 4.4 K/uL (1.8-8.9); NEUTROPHILS % (AUTO) 64.1 % (43.0-81.0); PLATELET COUNT (AUTO) 119 K/uL (150-450); RED BLOOD CELL COUNT(AUTO) 3.68 MIL/uL (4.0-5.2); RED CELL DISTRIBUTION WIDTH 14.6 % (11.5-15.0); WHITE BLOOD COUNT (AUTO) 6.8 K/uL (4.3-11.0)
[2023-11-06 09:19] LABS: CALCIUM, SERUM 11.4 mg/dL (8.5-10.1); CARBON DIOXIDE 27 mmol/L (21-32); CHLORIDE 101 mmol/L (98-107); CREATININE 0.6 mg/dL (0.6-1.3); GLUCOSE 127 mg/dL (74-106); MAGNESIUM 1.4 mg/dL (1.8-2.4); POTASSIUM 3.6 mmol/L (3.5-5.1); SODIUM SERUM 132 mmol/L (136-145); UREA NITROGEN, BLOOD 15 mg/dL (7-18)
[2023-11-06 11:12] VITALS: O2SAT 96
[2023-11-06] MEDS: NEUTRA PHOS 1 POWD.PACKET PO SCH (12:13)
[2023-11-06 16:00] VITALS: BP 127/63; TEMP 97; O2SAT 97
[2023-11-07 00:52] VITALS: BP 127/63; TEMP 97; O2SAT 97
[2023-11-07 04:18] VITALS: BP 138/62; TEMP 97.7; O2SAT 98
[2023-11-07 07:47] LABS: BASOPHILS # (AUTO) 0.1 K/uL (0.0-0.2); BASOPHILS % (AUTO) 0.7 % (0.0-2.0); EOSINOPHILS # (AUTO) 0.3 K/uL (0.0-0.7); EOSINOPHILS % (AUTO) 3.6 % (0.0-6.0); HEMATOCRIT 34 % (33-45); HEMOGLOBIN 10.8 g/dL (11.5-14.8); LYMPHOCYTES # (AUTO) 1.9 K/uL (0.8-4.8); LYMPHOCYTES % (AUTO) 20.9 % (20.0-44.0); MEAN CORPUSCULAR HEMOGLOBIN 27 PG (26.0-33.0); MEAN CORPUSCULAR HGB CONC 32 g/dl (31.0-36.0); MEAN CORPUSCULAR VOLUME 85 fL (82-100); MONOCYTES % (AUTO) 11.1 % (2.0-12.0); NEUTROPHILS # (AUTO) 5.7 K/uL (1.8-8.9); NEUTROPHILS % (AUTO) 63.7 % (43.0-81.0); PLATELET COUNT (AUTO) 152 K/uL (150-450); RED BLOOD CELL COUNT(AUTO) 3.94 MIL/uL (4.0-5.2); WHITE BLOOD COUNT (AUTO) 8.9 K/uL (4.3-11.0)
[2023-11-07 07:57] LABS: CALCIUM, SERUM 11.3 mg/dL (8.5-10.1); CARBON DIOXIDE 25 mmol/L (21-32); CHLORIDE 103 mmol/L (98-107); CREATININE 0.6 mg/dL (0.6-1.3); GLUCOSE 116 mg/dL (74-106); MAGNESIUM 1.7 mg/dL (1.8-2.4); PHOSPHORUS 2.2 mg/dL (2.5-4.9); POTASSIUM 3.9 mmol/L (3.5-5.1); SODIUM SERUM 136 mmol/L (136-145); UREA NITROGEN, BLOOD 11 mg/dL (7-18)
[2023-11-07 08:00] VITALS: BP 125/66; TEMP 98.2
[2023-11-07] MEDS: Magnesium 1GM/D5W 100ML PREMIX 100 ML IV SCH (09:46)
[2023-11-07] MEDS: PANTOPRAZOLE 40 MG TABLET.DR PO SCH (09:47)
[2023-11-07 16:00] VITALS: BP 130/65; TEMP 98.4; O2SAT 95
[2023-11-07] MEDS: IV NS 0.9% 1,000 ML IV PRN (16:27)
[2023-11-07] MEDS: K PHOS NEUTRAL 250 MG TABLET PO ONE (16:28)
[2023-11-07] MEDS ORDERED: Magnesium 1GM/D5W 100ML PREMIX 100 ML IV SCH (17:30)
[2023-11-07 19:50] LABS: INR 1.13 (0.91-1.10); PARTIAL THROMBOPLASTIN TIME 25.4 SEC (24.3-34.3); PROTHROMBIN TIME 11.9 SECS (9.2-11.1)
[2023-11-07] MEDS: HEPARIN SODIUM, PORCINE 5000 UNITS/1 ML VIAL IV ONE (22:05)
[2023-11-07] MEDS: HEPARIN INFUSION/D5W 500 ML IV PRN (22:16)
[2023-11-08] VITALS: BP 118/60; TEMP 98.1; O2SAT 95
[2023-11-08 00:07] LABS: VIT D, 25-HYDROXY 29.1 ng/mL (30.0-100.0)
[2023-11-08 07:18] LABS: BASOPHILS % (AUTO) 0.5 % (0.0-2.0); EOSINOPHILS # (AUTO) 0.3 K/uL (0.0-0.7); HEMATOCRIT 31 % (33-45); HEMOGLOBIN 10.1 g/dL (11.5-14.8); LYMPHOCYTES # (AUTO) 2.1 K/uL (0.8-4.8); LYMPHOCYTES % (AUTO) 25.4 % (20.0-44.0); MEAN CORPUSCULAR HEMOGLOBIN 27 PG (26.0-33.0); MEAN CORPUSCULAR HGB CONC 32 g/dl (31.0-36.0); MEAN CORPUSCULAR VOLUME 85 fL (82-100); MONOCYTES # (AUTO) 1.1 K/uL (0.1-1.30); MONOCYTES % (AUTO) 13.3 % (2.0-12.0); NEUTROPHILS # (AUTO) 4.8 K/uL (1.8-8.9); NEUTROPHILS % (AUTO) 56.8 % (43.0-81.0); PLATELET COUNT (AUTO) 157 K/uL (150-450); RED BLOOD CELL COUNT(AUTO) 3.72 MIL/uL (4.0-5.2); RED CELL DISTRIBUTION WIDTH 14.9 % (11.5-15.0); WHITE BLOOD COUNT (AUTO) 8.4 K/uL (4.3-11.0)
[2023-11-08 07:35] LABS: CALCIUM, SERUM 10.3 mg/dL (8.5-10.1); CARBON DIOXIDE 31 mmol/L (21-32); CHLORIDE 104 mmol/L (98-107); CREATININE 0.7 mg/dL (0.6-1.3); GLUCOSE 103 mg/dL (74-106); MAGNESIUM 1.7 mg/dL (1.8-2.4); PHOSPHORUS 2.7 mg/dL (2.5-4.9); POTASSIUM 3.9 mmol/L (3.5-5.1); SODIUM SERUM 137 mmol/L (136-145); UREA NITROGEN, BLOOD 13 mg/dL (7-18)
[2023-11-08 08:00] VITALS: BP 109/90; TEMP 98.2; O2SAT 96
[2023-11-08] MEDS ORDERED: Magnesium 1 GM/2 ML VIAL IV ONE (08:30)
[2023-11-08] MEDS: Magnesium 1GM/D5W 100ML PREMIX 100 ML IV SCH (09:39)
[2023-11-08] MEDS ORDERED: MAGNESIUM CITRATE 296 ML BOTTLE PO PRN (10:30)
[2023-11-08 16:00] VITALS: BP 121/60; TEMP 98.2; O2SAT 95
[2023-11-08 18:00] VITALS: BP 121/60; TEMP 98.2; O2SAT 94
[2023-11-09] VITALS: BP 133/53; TEMP 97.9; O2SAT 95
[2023-11-09] MEDS: ACETAMINOPHEN 325 MG TABLET PO PRN (03:55)
[2023-11-09 07:01] LABS: BASOPHILS % (AUTO) 0.6 % (0.0-2.0); EOSINOPHILS # (AUTO) 0.3 K/uL (0.0-0.7); EOSINOPHILS % (AUTO) 3.5 % (0.0-6.0); HEMATOCRIT 31 % (33-45); HEMOGLOBIN 9.8 g/dL (11.5-14.8); LYMPHOCYTES # (AUTO) 2.1 K/uL (0.8-4.8); LYMPHOCYTES % (AUTO) 26.1 % (20.0-44.0); MEAN CORPUSCULAR HEMOGLOBIN 27 PG (26.0-33.0); MEAN CORPUSCULAR HGB CONC 32 g/dl (31.0-36.0); MEAN CORPUSCULAR VOLUME 85 fL (82-100); MONOCYTES % (AUTO) 12.3 % (2.0-12.0); NEUTROPHILS # (AUTO) 4.6 K/uL (1.8-8.9); NEUTROPHILS % (AUTO) 57.5 % (43.0-81.0); PLATELET COUNT (AUTO) 169 K/uL (150-450); RED BLOOD CELL COUNT(AUTO) 3.66 MIL/uL (4.0-5.2); RED CELL DISTRIBUTION WIDTH 15.4 % (11.5-15.0)
[2023-11-09 07:25] LABS: CALCIUM, SERUM 10.3 mg/dL (8.5-10.1); CARBON DIOXIDE 28 mmol/L (21-32); CHLORIDE 102 mmol/L (98-107); CREATININE 0.7 mg/dL (0.6-1.3); GLUCOSE 100 mg/dL (74-106); MAGNESIUM 2.2 mg/dL (1.8-2.4); PHOSPHORUS 2.7 mg/dL (2.5-4.9); SODIUM SERUM 137 mmol/L (136-145); UREA NITROGEN, BLOOD 15 mg/dL (7-18)
[2023-11-09 08:00] VITALS: BP 138/73; TEMP 97.9; O2SAT 96
[2023-11-09] MEDS ORDERED: HEPARIN INFUSION/D5W 500 ML IV PRN (10:30)
[2023-11-09] MEDS: HEPARIN SODIUM, PORCINE 5000 UNITS/1 ML VIAL IV ONE (10:36)
[2023-11-09 16:00] VITALS: BP 124/66; TEMP 98.4; O2SAT 95
[2023-11-09] MEDS ORDERED: APIXABAN 5 MG TABLET PO SCH (17:00)
[2023-11-09] MEDS: APIXABAN 5 MG TABLET PO SCH (18:49)
[2023-11-09 20:00] VITALS: BP 135/63; TEMP 98.9; O2SAT 99
[2023-11-10 05:13] VITALS: BP 131/61; TEMP 98.1; O2SAT 94
[2023-11-10 08:00] VITALS: BP 133/60; TEMP 97.5; O2SAT 93
[2023-11-10 08:02] LABS: CALCIUM, SERUM 10.1 mg/dL (8.5-10.1); CARBON DIOXIDE 27 mmol/L (21-32); CHLORIDE 103 mmol/L (98-107); CREATININE 0.7 mg/dL (0.6-1.3); GLUCOSE 88 mg/dL (74-106); POTASSIUM 4.4 mmol/L (3.5-5.1); SODIUM SERUM 134 mmol/L (136-145); UREA NITROGEN, BLOOD 20 mg/dL (7-18)
[2023-11-10 08:03] LABS: MAGNESIUM 2.3 mg/dL (1.8-2.4); PHOSPHORUS 2.8 mg/dL (2.5-4.9)
[2023-11-10 08:24] LABS: THYROID STIMULATING HORMONE 4.55 uIU/mL (0.358-3.74)
[2023-11-10 10:04] LABS: BASOPHILS # (AUTO) 0.1 K/uL (0.0-0.2); BASOPHILS % (AUTO) 0.8 % (0.0-2.0); EOSINOPHILS # (AUTO) 0.2 K/uL (0.0-0.7); EOSINOPHILS % (AUTO) 2.5 % (0.0-6.0); HEMATOCRIT 32 % (33-45); HEMOGLOBIN 10.2 g/dL (11.5-14.8); LYMPHOCYTES # (AUTO) 1.7 K/uL (0.8-4.8); LYMPHOCYTES % (AUTO) 20.8 % (20.0-44.0); MEAN CORPUSCULAR HEMOGLOBIN 27 PG (26.0-33.0); MEAN CORPUSCULAR HGB CONC 32 g/dl (31.0-36.0); MEAN CORPUSCULAR VOLUME 85 fL (82-100); MONOCYTES # (AUTO) 0.9 K/uL (0.1-1.30); MONOCYTES % (AUTO) 10.9 % (2.0-12.0); NEUTROPHILS # (AUTO) 5.2 K/uL (1.8-8.9); PLATELET COUNT (AUTO) 225 K/uL (150-450); RED BLOOD CELL COUNT(AUTO) 3.79 MIL/uL (4.0-5.2); RED CELL DISTRIBUTION WIDTH 15.4 % (11.5-15.0)
[2023-11-10] MEDS: SOD FERRIC GLUC 125 MG in IV NS 0.9% 100 ML IV SCH (14:03)
[2023-11-10] MEDS ORDERED: GABA100C PO (14:30)
[2023-11-10] MEDS ORDERED: APIX5TAB PO (14:30)
[2023-11-10] MEDS ORDERED: FERR-56 PO (14:30)
[2023-11-11 07:07] LABS: FOLIC ACID 5.7 ng/mL (>3.0)
[2023-11-11 08:07] LABS: IMMUNOGLOBULIN A, SERUM 209 mg/dL (64-422); IMMUNOGLOBULIN G, SERUM 1127 mg/dL (586-1602); IMMUNOGLOBULIN M, SERUM 76 mg/dL (26-217)
[2023-11-11 15:11] LABS: FREE KAPPA LT CHAINS SERUM 38.3 mg/L (3.3-19.4); FREE LAMBDA LT CHAIN SERUM 41.5 mg/L (5.7-26.3); KAPPA/LAMBDA RATIO SERUM 0.92 (0.26-1.65)
[2023-11-14 14:10] LABS: *SPE A/G RATIO 0.5 (0.7-1.7); *SPE ALBUMIN 1.8 g/dL (2.9-4.4); *SPE ALPHA-1-GLOBULIN 0.4 g/dL (0.0-0.4); *SPE ALPHA-2-GLOBULIN 0.7 g/dL (0.4-1.0); *SPE GLOBULIN, TOTAL 3.3 g/dL (2.2-3.9); *SPE M-SPIKE Not Observed g/dL (Not Observed); *SPE PROTEIN TOTAL 5.1 g/dL (6.0-8.5); *SPEGAMMA GLOBULIN 1.1 g/dL (0.4-1.8)
== END 2023-11-10 17:39 | DRG 336 ==
LOC: ER 16:39 → MEDSG1 20:31 → ICU 11-01 19:42 → TELE1 11-03 12:54 → MEDSG1 11-04 13:13
PROVIDERS: ATTEND Student in an Organized Health Care Education/Training Program
PROC: 0DNU0ZZ Release Omentum, Open Approach (ICD-10-PCS; principal; 2023-11-01)
PROC: 0DN80ZZ Release Small Intestine, Open Approach (ICD-10-PCS; 2023-11-01)
PROC: 0WQF0ZZ Repair Abdominal Wall, Open Approach (ICD-10-PCS; 2023-11-01)
DX: K43.6 Other and unspecified ventral hernia with obstruction, without gangrene (principal); E87.1 Hypo-osmolality and hyponatremia; K56.50 Intestinal adhesions [bands], unspecified as to partial versus complete obstruction; N17.9 Acute kidney failure, unspecified; E78.5 Hyperlipidemia, unspecified; I48.91 Unspecified atrial fibrillation; F41.9 Anxiety disorder, unspecified; D64.9 Anemia, unspecified; E83.39 Other disorders of phosphorus metabolism; E83.42 Hypomagnesemia; E83.51 Hypocalcemia; E88.09 Other disorders of plasma-protein metabolism, not elsewhere classified; G89.4 Chronic pain syndrome; I10 Essential (primary) hypertension; Z79.01 Long term (current) use of anticoagulants; E86.9 Volume depletion, unspecified; E66.9 Obesity, unspecified; Z68.39 Body mass index [BMI] 39.0-39.9, adult; M89.8X9 Other specified disorders of bone, unspecified site; Z87.01 Personal history of pneumonia (recurrent); I27.20 Pulmonary hypertension, unspecified; E83.52 Hypercalcemia; E66.01 Morbid (severe) obesity due to excess calories; F17.210 Nicotine dependence, cigarettes, uncomplicated
CPT/HCPCS: 36415; 70450-TC; 71045-TC; 74018; 80048-TC; 80053-TC; 80076-TC; 82306; 82570-TC; 82607-TC; 82728-TC; 82784; 83540-TC; 83690-TC; 83735-TC; 83970; 84100-TC; 84155; 84165; 84300-TC; 84443-TC; 84484-TC; 85025-TC; 85610-TC; 85730-TC; 86334; 86850-TC; 93307-TC; 93970-TC; 93971-TC; 97110-TC; 97116-TC; 97164; 97530-TC; A4223; A6403; G0378; J0690; J1170; J1644; J1885; J2060; J2250; J2270; J2405; J2470; J2704; J2765; J2916; J3010; J3475; J3490; J7030; J7042; J7120

== ENCOUNTER 2023-12-13 10:53 | Emergency (ER) | payer MEDICARE, OTHER ==
[~2023-12-13] VITALS: Ht 154.9 cm; Wt 87.5 kg
[~2023-12-13 10:53] MED LIST changes: -AMIO200T5 PO; -CLON0.1T PO; +CRAN425C6 PO; -DICLOFENAC SODIUM TP; +FERR-56 PO; +GABA100C PO; -GABA300C PO; -LINA290C PO; +MAGN400T52 PO; +MIRABEGRON PO; -NITR100C PO; +TAMS-12 PO
[2023-12-13 11:28] VITALS: BP 116/51; TEMP 97.8
[2023-12-13 12:02] LABS: APPEARANCE,URINE CLOUDY (CLEAR); BILIRUBIN,URINE NEGATIVE (NEGATIVE); BLOOD, URINE 3+ Ery/uL (NEGATIVE); COLOR,URINE YELLOW (YELLOW); KETONES,URINE NEGATIVE (NEGATIVE); LEUKOCYTE ESTERASE ,URINE TRACE (NEGATIVE); NITRITE, URINE NEGATIVE (NEGATIVE); PROTEIN,URINE NEGATIVE (NEGATIVE); UGLUCOSE NEGATIVE (NEGATIVE); UROBILINOGEN,URINE 0.2 EU/dL (0.2)
[2023-12-13 12:04] LABS: BASOPHILS % (AUTO) 0.6 % (0.0-2.0); EOSINOPHILS # (AUTO) 0.1 K/uL (0.0-0.7); HEMATOCRIT 37 % (33-45); LYMPHOCYTES # (AUTO) 1.9 K/uL (0.8-4.8); LYMPHOCYTES % (AUTO) 27.6 % (20.0-44.0); MEAN CORPUSCULAR HEMOGLOBIN 28 PG (26.0-33.0); MEAN CORPUSCULAR HGB CONC 33 g/dl (31.0-36.0); MEAN CORPUSCULAR VOLUME 88 fL (82-100); MONOCYTES # (AUTO) 0.5 K/uL (0.1-1.30); MONOCYTES % (AUTO) 7.7 % (2.0-12.0); NEUTROPHILS # (AUTO) 4.2 K/uL (1.8-8.9); NEUTROPHILS % (AUTO) 62.1 % (43.0-81.0); PLATELET COUNT (AUTO) 174 K/uL (150-450); RED BLOOD CELL COUNT(AUTO) 4.22 MIL/uL (4.0-5.2); RED CELL DISTRIBUTION WIDTH 17.3 % (11.5-15.0); WHITE BLOOD COUNT (AUTO) 6.7 K/uL (4.3-11.0)
[2023-12-13 12:11] LABS: CALCIUM, SERUM 10.4 mg/dL (8.5-10.1); CARBON DIOXIDE 28 mmol/L (21-32); CHLORIDE 105 mmol/L (98-107); CREATININE 0.9 mg/dL (0.6-1.3); GLUCOSE 97 mg/dL (74-106); POTASSIUM 4.4 mmol/L (3.5-5.1); SODIUM SERUM 140 mmol/L (136-145); UREA NITROGEN, BLOOD 16 mg/dL (7-18)
[2023-12-13 12:16] LABS: BACTERIA,URINE Rare /HPF (None Seen); RBC,URINE TOO NUMEROUS TO COUN /HPF (0-2); SQUAMOUS EPITHELIAL CELL,UR Few /HPF (None Seen)
[2023-12-13 12:17] LABS: ALANINE AMINOTRANSFERASE 9 U/L (12-78); ALBUMIN 3.1 g/dL (3.4-5.0); ALKALINE PHOSPHATASE 234 U/L (46-116); ASPARTATE AMINOTRANSFERASE 17 U/L (15-37); BILIRUBIN,DIRECT 0.2 mg/dL (0.0-0.2); BILIRUBIN,TOTAL 0.6 mg/dL (0.2-1.0); LIPASE 15 U/L (16-77); TOTAL PROTEIN, SERUM 6.8 g/dL (6.4-8.2)
[2023-12-13 12:17] LABS: ADD URINE CULTURE NO
[2023-12-13] MEDS ORDERED: CEFD300C3 PO (13:19)
[2023-12-13 13:29] VITALS: O2SAT 98
== END 2023-12-13 13:30 | disposition home or self-care (01) ==
LOC: ER 11:08
DX: N39.0 Urinary tract infection, site not specified (principal); R31.9 Hematuria, unspecified; R39.15 Urgency of urination; E78.5 Hyperlipidemia, unspecified; I10 Essential (primary) hypertension; I48.91 Unspecified atrial fibrillation; Z79.01 Long term (current) use of anticoagulants; Z79.84 Long term (current) use of oral hypoglycemic drugs; Z88.6 Allergy status to analgesic agent; Z96.659 Presence of unspecified artificial knee joint; Z98.890 Other specified postprocedural states; Z87.19 Personal history of other diseases of the digestive system
CPT/HCPCS: 36415; 80048-TC; 80076-TC; 81001; 83690-TC; 85025-TC